=== PATIENT | male | born 1935 | race Caucasian/White ===

== ENCOUNTER 2023-09-17 18:27 | Inpatient (IN) | payer MEDICARE, BC, SELFPAY ==
[2023-09-17] VITALS (12 sets, daily range): BP systolic 123–152; BP diastolic 47–72; BMI 25.7; BMI 24.2
[2023-09-17 13:42] LABS: % Basophils 0.3 % (0-2); % Eosinophils 0.2 % (0-6); % Immature Granulocytes 0.6 % (0-0.5); % Lymphocytes 14.5 % (20.5-51.1); % Monocytes 19.7 % (1.7-9.3); % Neutrophils 64.7 % (42.2-75.2); Absolute Lymphocytes 0.9 10^3/uL (1.2-3.4); Absolute Monocytes 1.3 10^3/uL (0.1-0.6); Absolute Neutrophils 4.1 10^3/uL (1.4-6.5); Hematocrit 22.4 % (39.0-52.0); Hemoglobin 6.7 g/dL (13.0-18.0); Mean Corp Hgb Conc. 29.9 g/dL (33.0-37.0); Mean Corpuscular Hgb 26.4 pg (27.0-31.0); Mean Corpuscular Volume 88.2 fL (80.0-94.0); Mean Platelet Volume 11.1 fL (7.4-10.4); Nucleated Red Blood Cells % 0 % (-); Platelet Count 210 10^3/uL (130-400); Red Blood Cell Count 2.54 10^6/uL (4.70-6.10); Red Cell Dist. Width 17.7 % (11.5-14.5); White Blood Cell Count 6.4 10^3/uL (4.8-10.8)
[2023-09-17 14:00] LABS: NT-proBNP 4280 pg/ml; Troponin I 0.019 ng/ml
[2023-09-17 14:01] LABS: ALT (SGPT) 17 U/L (0-50); AST (SGOT) 30 U/L (17-59); Albumin 3.5 g/dl (3.5-5.0); Alkaline Phosphatase 63 U/L (38-126); Blood Urea Nitrogen 31 mg/dl (9-20); Calcium 8.4 mg/dl (8.4-10.2); Carbon Dioxide 28 mmol/L (22-30); Chloride 100 mmol/L (98-107); Glucose 111 mg/dl (70-99); Potassium 3.7 mmol/L (3.5-5.1); Sodium 133 mmol/L (135-145); Total Bilirubin 1.1 mg/dl (0.2-1.3); eGFR > 60.00
--- NOTE | 2023-09-17 15:04 | ED.GENMED ---
History of Present Illness
<Marely Ramirez PA-C - Last Filed: 09/23/23 18:23>
General
Chief Complaint: Abdominal Pain
Source: patient
Exam Limitations: none
Time Seen by Provider: 09/17/23 14:21
Nursing documentation reviewed up to this point in time: agreed with
Travel History
Have you had any contact with someone who has COVID-19?: No
Do you have any symptoms of coronavirus? Fever > 100 degrees, chills, cough, shortness of breath, sore throat, loss of taste or smell, muscle aches, or headache?: No
History of Present Illness
History of Present Illness:
88-year-old male with a history of interstitial lung disease and chronic respiratory failure on 6 L nasal cannula chronically, chronic cholecystitis status post a cholecystostomy tube in June [address] Brar presents with continued worsening
abdominal distention over the last several weeks. Apparently since the cholecystostomy tube was placed he has had episodes of fluid in his abdomen which has felt to be due to heart failure. His primary care doctor bumped up his Lasix from 40 mg
twice daily to 80 mg twice daily for a week previously in July and that seemed to take care of this excess fluid in his belly. At the beginning of this month August patient started having accumulation of fluid in his belly and did see his
doctor, was recommended to bump up his Lasix to 80 mg twice daily which he did but that did not seem to help at all. Patient has had continued but not worsening distention/ascites but now over the last 2 days he has pain in the right abdomen. His
cholecystostomy tube is draining anywhere from 100 to 400 cc of yellowish to brownish fluid daily. He has a home care nurse who comes to help care for his tube. It chronically leaks so he carries it in a Ziploc bag. He is not having any fever or
chills, increased need for oxygen, chest pain, more exertional dyspnea than normal, severely worsening leg edema though his ankles are little bit more swollen than his baseline.
Patient has had a transfusion previously for symptomatic anemia, he had an endoscopy and colonoscopy not visualizing any source of bleeding. It seems as if the patient's hemoglobin prior to his cholecystitis was always low however he never needed a
transfusion until more recently
Patient has never had a paracentesis, he has no known liver disease, is not an alcoholic
Past History
<Marely Ramirez PA-C - Last Filed: 09/23/23 18:23>
Past History
ED Past Medical History: CAD, Cancer (Prostate), CHF, GERD, HTN, Hypercholesterolemia, Valvular disease (Aortic stenosis) and Other (Interstitial lung disease)
ED Past Surgical History: Appendectomy, Cardiac (PTCA with stent), Orthopedic, Urological (Prostatectomy) and Other (Prostatectomy)
Social History
Tobacco: 2nd hand smoke exposure
Personal:
Living: with family
Employment: Retired
Review of Systems
<Marely Ramirez PA-C - Last Filed: 09/23/23 18:23>
Review of Systems
Allergies reviewed?: Yes
All Other Systems: Not applicable
Phy Exam
<Marely Ramirez PA-C - Last Filed: 09/23/23 18:23>
Physical Exam
Physical Exam:
GENERAL: Alert , in no apparent distress
EYE: pupils equal and reactive
NECK: Supple
ENT: o/p clr, mmm.
CARDIAC: Regular rate and rhythm . Mild edema
LUNGS: Faint crackles in the bases, no cough, no respiratory distress
ABDOMEN: soft, +distended, fluid/not air, mild tender RUQ, perc eligio tube in place draining moderate volume tea colored fluid
Heme-negative brown stool
NEUROLOGICAL: Alert and oriented, no focal neuro deficits
SKIN: Warm and dry, skin intact.
MUSCULOSKELETAL: Mild pedal and ankle edema, well perfused. neg addis's sign
PSYCH: Normal and appropriate interaction.
Course
<Marely Ramirez PA-C - Last Filed: 09/23/23 18:23>
Orders/Labs/Results
Orders:
Orders
09/17/23 13:18
Electrocardiogram (*1) Urgent
Reason for Study: Abdominal Pain
09/17/23 13:19
EKG- Treatment ONCE
09/17/23 13:30
Complete Blood Count/With Diff Urgent
Comprehensive Metabolic Panel Urgent
Ferritin Urgent
Comment: ADD ON
Folate Urgent
Comment: ADD ON
Iron Urgent
Comment: ADD ON
NT-proBNP Urgent
Total Iron Binding Urgent
Comment: ADD ON
Troponin I Urgent
Vitamin B12 Urgent
Comment: ADD ON
09/17/23 Dinner
NPO
Allow oral meds: Yes
Allow clear liquids: Sips of Clears
NPO with Ice Chips: Yes
09/17/23 15:15
CR Chest - 2 Views Urgent
Comment:
Reason For Exam: chf
09/17/23 15:45
Type+Screen Urgent
09/17/23 15:47
CT Abd/Pel (IV only)-DH only Urgent
Comment:
Reason For Exam: abd distension, perc eligio tube, pain right side
09/17/23 17:25
Blood Bank Products [* Blood Bank Products] Routine
Blood Bank Products: *Packed RBC Leuko(PRBC's)
Quantity: 1
Transfuse Today: Yes
Reason: Anemia
Furosemide [Lasix] 60 mg IV NOW STA
09/17/23 17:36
Admit/Transfer Patient As Directed
Co-Sign Provider:
Level of Care: Inpatient admission
Assign to:: Telemetry
Physician / Group: Maeve
Diagnosis: CHF, Abdominal Pain
Reason for Telemetry: Acute Heart Failure
Date to Stop Telemetry: 09/20/23
Time to Stop Telemetry: 11:00
Reason for Hospitalization: IV diuretics
Expected length of stay greater than two midnights?: Yes
ELOS- Estimated Length of Stay in days: 3
I certify the patient meets the requirements for IP care: Yes
09/17/23 18:05
Code Status As Directed
Resuscitation Status: Do not resuscitate
Reached after discussion with pt or family/Healthcare POA: Yes
DNR Bracelet Application ONCE
09/17/23 18:10
Add On- LAB Routine
Tests Added?: iron, ferritin, tibc, folate vit b12
09/17/23 18:19
Morphine Sulfate 2 mg IV Q4HPRN PRN
09/17/23 19:37
Atorvastatin [Lipitor] 20 mg PO QPM
09/17/23 19:37
CARDIOLOGY CONSULT Routine
Consulting Provider: Calvin Avilez
Was physician already notified: Yes
HF DIETARY CONSULT Routine
HF EDUCATOR CONSULT Routine
Comment:
IRAD CONSULT Routine
Consulting Provider: Matt Gale
Was physician already notified: Yes
Reason for consult: Cholecystostomy Tube Check
SURGICAL CONSULT Routine
Consulting Provider: Surjit Brar
Was physician already notified: Yes
Activity As Directed
Activity Level: Out of Bed-Early Mobility
Hemetest Stools As Directed
Intake/ Output As Directed
Frequency: Per unit guidelines
Patient Education As Directed
Type: CHF folder
Comment: give on admission. Document in Interdisciplinary Education record
Sleep Apnea Assessment by RN As Directed
Comment:
Physician Instructions:
Vital Signs As Directed
Frequency: Other
Additional Instructions:: Q12 or per unit guidelines if more frequent.
Weight As Directed
Frequency: Daily
Type of Scale: Standing Scale
Comment: Daily morning weight. If unable to stand, use balanced bed scale.
Weight As Directed
Frequency: Once
Type of Scale: Standing Scale
Comment: Upon Admission. If unable to stand, use balanced bed scale.
Xopenex Reason for Use As Directed
Reason for ordering Xopenex instead of Albuterol: patient takes at home
Pulse Ox/cont/shift [RESP] Routine
Quantity: 1
Special Instructions: Daily pulse oximetry at rest. If greater than 92% at rest also obtain pulse oximetry
while ambulating as tolerated.
DX Deep Vein Thrombosis Video Routine
09/17/23 20:00
Levalbuterol [Xopenex 0.63 mg Inhalant Solution] 0.63 mg INH R TID
Metoprolol Xl [Toprol Xl] 75 mg PO BID
Pantoprazole [Protonix] 40 mg PO BID
09/18/23 00:00
Heparin 5,000 units SC Q8
09/18/23 05:41
Basic Metabolic Panel IN AM
Complete Blood Count/No Diff IN AM
Magnesium IN AM
TSH Reflex To Free T4 IN AM
09/18/23 05:42
Prothrombin Time IN AM
09/18/23 08:00
Amlodipine [Norvasc] 2.5 mg PO DAILY
Aspirin Low Dose EC [Aspir Low (Enteric Coated)] 81 mg PO DAILY
Furosemide [Lasix] 60 mg IV BID AT 0800,1600
ISOSORBIDE MONOnitrate ER [Imdur (Extended Release)] 120 mg PO DAILY
Prednisone [Deltasone] 10 mg PO DAILY
09/19/23 05:32
Basic Metabolic Panel IN AM
09/20/23 11:00
DC Protocol for Telemetry ONCE
Abnormal Lab Results
09/17/23 09/17/23
13:30 15:45
RBC 2.54 L 10^6/uL
(4.70-6.10)
Hgb 6.7 L* g/dL
(13.0-18.0)
Hct 22.4 L %
(39.0-52.0)
MCH 26.4 L pg
(27.0-31.0)
MCHC 29.9 L g/dL
(33.0-37.0)
RDW 17.7 H %
(11.5-14.5)
MPV 11.1 H fL
(7.4-10.4)
Absolute Lymphs (auto) 0.9 L 10^3/uL
(1.2-3.4)
Absolute Monos (auto) 1.3 H 10^3/uL
(0.1-0.6)
Immature Gran % 0.6 H %
(0-0.5)
Lymphocytes % 14.5 L %
(20.5-51.1)
Monocytes % 19.7 H %
(1.7-9.3)
Sodium 133 L mmol/L
(135-145)
BUN 31 H mg/dl
(9-20)
Glucose 111 H mg/dl
(70-99)
Iron 29 L ug/dl
(49-181)
% Saturation 10 L %
(20-50)
Total Protein 6.0 L g/dl
(6.3-8.2)
Vitamin B12 932 H pg/ml
(239-931)
Folate > 20.0 H ng/ml
(2.76-20)
Crossmatch IS Only See Detail
09/17/23 13:30
09/17/23 13:30
Vital Signs
Initial and Last Documented VS:
Initial Vital Signs
Temp Pulse Resp BP Pulse Ox
98.0 F 76 20 123/47 97
09/17/23 13:12 09/17/23 13:12 09/17/23 13:12 09/17/23 13:12 09/17/23 13:12
Last Documented Vital Signs
Temp Pulse Resp BP Pulse Ox
98.1 F 72 18 120/57 100
09/19/23 15:00 09/19/23 15:00 09/19/23 15:00 09/19/23 15:00 09/19/23 15:00
<Harry Ritchie MD - Last Filed: 09/17/23 19:33>
Orders/Labs/Results
Orders:
Orders
09/17/23 13:18
Electrocardiogram (*1) Urgent
Reason for Study: Abdominal Pain
09/17/23 13:19
EKG- Treatment ONCE
09/17/23 13:30
Complete Blood Count/With Diff Urgent
Comprehensive Metabolic Panel Urgent
Ferritin Urgent
Comment: ADD ON
Folate Urgent
Comment: ADD ON
Iron Urgent
Comment: ADD ON
NT-proBNP Urgent
Total Iron Binding Urgent
Comment: ADD ON
Troponin I Urgent
Vitamin B12 Urgent
Comment: ADD ON
09/17/23 Dinner
NPO
Allow oral meds: Yes
Allow clear liquids: Sips of Clears
NPO with Ice Chips: Yes
09/17/23 15:15
CR Chest - 2 Views Urgent
Comment:
Reason For Exam: chf
09/17/23 15:45
Type+Screen Urgent
09/17/23 15:47
CT Abd/Pel (IV only)-DH only Urgent
Comment:
Reason For Exam: abd distension, perc eligio tube, pain right side
09/17/23 17:25
Blood Bank Products [* Blood Bank Products] Routine
Blood Bank Products: *Packed RBC Leuko(PRBC's)
Quantity: 1
Transfuse Today: Yes
Reason: Anemia
Furosemide [Lasix] 60 mg IV NOW STA
09/17/23 17:36
Admit/Transfer Patient As Directed
Co-Sign Provider:
Level of Care: Inpatient admission
Assign to:: Telemetry
Physician / Group: Maeve
Diagnosis: CHF, Abdominal Pain
Reason for Telemetry: Acute Heart Failure
Date to Stop Telemetry: 09/20/23
Time to Stop Telemetry: 11:00
Reason for Hospitalization: IV diuretics
Expected length of stay greater than two midnights?: Yes
ELOS- Estimated Length of Stay in days: 3
I certify the patient meets the requirements for IP care: Yes
09/17/23 18:05
Code Status As Directed
Resuscitation Status: Do not resuscitate
Reached after discussion with pt or family/Healthcare POA: Yes
DNR Bracelet Application ONCE
09/17/23 18:10
Add On- LAB Routine
Tests Added?: iron, ferritin, tibc, folate vit b12
09/17/23 18:19
Morphine Sulfate 2 mg IV Q4HPRN PRN
09/17/23 19:37
Atorvastatin [Lipitor] 20 mg PO QPM
09/17/23 19:37
CARDIOLOGY CONSULT Routine
Consulting Provider: Calvin Avilez
Was physician already notified: Yes
HF DIETARY CONSULT Routine
HF EDUCATOR CONSULT Routine
Comment:
IRAD CONSULT Routine
Consulting Provider: Matt Gale
Was physician already notified: Yes
Reason for consult: Cholecystostomy Tube Check
SURGICAL CONSULT Routine
Consulting Provider: Surjit Brar
Was physician already notified: Yes
Activity As Directed
Activity Level: Out of Bed-Early Mobility
Hemetest Stools As Directed
Intake/ Output As Directed
Frequency: Per unit guidelines
Patient Education As Directed
Type: CHF folder
Comment: give on admission. Document in Interdisciplinary Education record
Sleep Apnea Assessment by RN As Directed
Comment:
Physician Instructions:
Vital Signs As Directed
Frequency: Other
Additional Instructions:: Q12 or per unit guidelines if more frequent.
Weight As Directed
Frequency: Daily
Type of Scale: Standing Scale
Comment: Daily morning weight. If unable to stand, use balanced bed scale.
Weight As Directed
Frequency: Once
Type of Scale: Standing Scale
Comment: Upon Admission. If unable to stand, use balanced bed scale.
Xopenex Reason for Use As Directed
Reason for ordering Xopenex instead of Albuterol: patient takes at home
Pulse Ox/cont/shift [RESP] Routine
Quantity: 1
Special Instructions: Daily pulse oximetry at rest. If greater than 92% at rest also obtain pulse oximetry
while ambulating as tolerated.
DX Deep Vein Thrombosis Video Routine
09/17/23 20:00
Levalbuterol [Xopenex 0.63 mg Inhalant Solution] 0.63 mg INH R TID
Metoprolol Xl [Toprol Xl] 75 mg PO BID
Pantoprazole [Protonix] 40 mg PO BID
09/18/23 00:00
Heparin 5,000 units SC Q8
09/18/23 05:41
Basic Metabolic Panel IN AM
Complete Blood Count/No Diff IN AM
Magnesium IN AM
TSH Reflex To Free T4 IN AM
09/18/23 05:42
Prothrombin Time IN AM
09/18/23 08:00
Amlodipine [Norvasc] 2.5 mg PO DAILY
Aspirin Low Dose EC [Aspir Low (Enteric Coated)] 81 mg PO DAILY
Furosemide [Lasix] 60 mg IV BID AT 0800,1600
ISOSORBIDE MONOnitrate ER [Imdur (Extended Release)] 120 mg PO DAILY
Prednisone [Deltasone] 10 mg PO DAILY
09/19/23 05:32
Basic Metabolic Panel IN AM
09/20/23 11:00
DC Protocol for Telemetry ONCE
Abnormal Lab Results
09/17/23 09/17/23
13:30 15:45
RBC 2.54 L 10^6/uL
(4.70-6.10)
Hgb 6.7 L* g/dL
(13.0-18.0)
Hct 22.4 L %
(39.0-52.0)
MCH 26.4 L pg
(27.0-31.0)
MCHC 29.9 L g/dL
(33.0-37.0)
RDW 17.7 H %
(11.5-14.5)
MPV 11.1 H fL
(7.4-10.4)
Absolute Lymphs (auto) 0.9 L 10^3/uL
(1.2-3.4)
Absolute Monos (auto) 1.3 H 10^3/uL
(0.1-0.6)
Immature Gran % 0.6 H %
(0-0.5)
Lymphocytes % 14.5 L %
(20.5-51.1)
Monocytes % 19.7 H %
(1.7-9.3)
Sodium 133 L mmol/L
(135-145)
BUN 31 H mg/dl
(9-20)
Glucose 111 H mg/dl
(70-99)
Iron 29 L ug/dl
(49-181)
% Saturation 10 L %
(20-50)
Total Protein 6.0 L g/dl
(6.3-8.2)
Vitamin B12 932 H pg/ml
(239-931)
Folate > 20.0 H ng/ml
(2.76-20)
Crossmatch IS Only See Detail
09/17/23 13:30
0326/24 13:30
Vital Signs
Initial and Last Documented VS:
Initial Vital Signs
Temp Pulse Resp BP Pulse Ox
98.0 F 76 20 123/47 97
09/17/23 13:12 09/17/23 13:12 09/17/23 13:12 09/17/23 13:12 09/17/23 13:12
Last Documented Vital Signs
Temp Pulse Resp BP Pulse Ox
98.1 F 72 18 120/57 100
09/19/23 15:00 09/19/23 15:00 09/19/23 15:00 09/19/23 15:00 09/19/23 15:00
Rezalt;Marely Ramirez PA-C - Last Filed: 09/23/23 18:23>
MDM/Problems Addressed
Differential Diagnosis Includes:
ascites, sbp, chf, volume overload
MDM/Problems Addressed:
88-year-old male with ongoing persistent abdominal swelling which has been attributed to fluid volume overload ever since he had a PERC cholecystostomy tube in June. Patient has been treated a couple of times with increasing his Lasix which
worked in July but this month has not worked and the patient is having trouble taking breaths because he feels like his belly is too big. He does chronically wear oxygen for interstitial lung disease 6 L and has not required any increase in his
oxygen concentration. Patient has not had exertional chest pain or shortness of breath. He has started with right-sided abdominal pain for the past 2 days which is why he is here. He has been wanting someone to drain the fluid from his belly but
has not had that happen. His PERC Yanet tube still is draining 100 to 400 cc of fluid daily. There is been no change in that. He is not having any systemic symptoms. On exam the patient does look to have abdominal ascites, has some faint
crackles in both lungs but not significant sounds of heart failure, his ankles are slightly swollen, he did have some tenderness to the right upper quadrant, had the PERC Yanet tube is draining brownish fluid that does not look cloudy or thick.
Patient's hemoglobin is 6.7 but he does not seem overly symptomatic. I fear transfusing him at this time not knowing his volume status, his BNP is elevated, pending chest x-ray. He is Hemoccult negative brown stool.
At this point he is pending chest x-ray and abdominal CT but will likely need to be admitted for IR to tap this fluid, probably as a diagnostic and therapeutic tap. He has no known liver disease and his liver functions are normal. Plus or minus a
transfusion during this admission
<Marely Ramirez PA-C - Last Filed: 09/23/23 18:23>
*Critical Care Note
Total Time (30-74mins, 75-104mins- exclusive of procedures): Not Applicable
ED Attending Note
<Marely Ramirez PA-C - Last Filed: 09/23/23 18:23>
-
Portions of this chart may have been created with voice recognition software.� Occasional wrong word or��sound alike� substitutions may have occurred due to the inherent limitations of voice recognition software.
<Harry Ritchie MD - Last Filed: 09/17/23 19:33>
ED Attending Note
Patient seen and examined by attending physician: Yes
ED Attending Note:
I have seen and evaluated the patient with a [id number] encounter. I have spoken to the advance practicer provider and involved in the medical history, the physical exam, medical decision making.
Evaluation and management service: agree unless noted differently below.
Results interpretation: agree unless noted differently below.
Focused HPI: 88-year-old male with extensive medical history as documented including chronic anemia, CHF, prostate cancer, CAD, aortic stenosis, interstitial lung disease with chronic respiratory failure on 6 L of nasal cannula who is currently on
hospice (CHF is end-stage diagnosis) presents for evaluation of abdominal pain. He had a recent hospitalization in June for acute cholecystitis and underwent percutaneous cholecystostomy tube with [facility]. He has had cholecystostomy tube in place
since which has had rather significant output apparently 200 to 300 cc daily. Apparently over the past few weeks he has had increasing abdominal pain and distention. Over the past few days he feels it is much worse particularly in the right upper
abdomen. He still has had normal output from his tube. He has not had a fever. He has not had any vomiting. He is still passing his bowels. He was brought to the emergency room to be assessed.
Physical exam: Awake and alert, chronically ill-appearing. He has no cardiac rubs gallops or murmurs. His lungs are clear to auscultation bilaterally. He has a percutaneous cholecystostomy tube in place, site appears clean, tea colored output
approximately 200 cc in the bag. His abdomen is mildly distended with likely ascites, tender to palpation right upper quadrant. He has trace edema in his lower extremities bilaterally.
Medical Decision Makin-year-old male with extensive medical history and recent percutaneous cholecystostomy tube placed for acute cholecystitis in June who presents for worsening abdominal stanchion over the past few weeks and now worsening
right upper quadrant pain as well. Exam as above. Labs sent off and his CBC shows acute on chronic anemia with a hemoglobin of 6.7 (Hemoccult negative on rectal by physicians bindery library technical assistant). CMP shows acceptable LFTs. His proBNP is elevated. Chest
x-ray shows some mild pulmonary edema. CT of the abdomen pelvis shows acute cholecystitis with questionable leak from cholecystostomy tube. Will defer decision for transfusion to hospitalist given questionable CHF exacerbation. Will treat with
antibiotics. Will likely need to check with [facility]. Discussed with hospitalist to admit.
Discharge Plan
Departure
Patient Disposition: Admit
Admit to: Med/Surg
Presentation/result/management discussed w/ accepting MD/DO: Hospitalist
Condition: Fair
Covid-19: Not Applicable
Discharge Problem:
Acute cholecystitis
Interventions
Interventions:
*Risk Screen - Suicide Last Done: 09/17/23 15:31
*General Assessment Last Done: 09/17/23 15:31
*Neglect/Abuse Screening Last Done: 09/17/23 15:31
ED- Fall Risk Assessment Last Done: 09/17/23 19:09
*ED COVID-19 Vaccine History Last Done: 09/17/23 15:31
*Nursing Disposition Last Done: 09/17/23 19:54
XG-Fldfdm-Jcaikhltid Assessment Last Done: 09/17/23 19:09
Discharge Date and Time
Discharge Date/Time: 09/17/23 20:15
--- NOTE | 2023-09-17 17:48 | HPS.HSE ---
Addendum entered and electronically signed by Navi Mcfarlane MD 09/17/23 18:18:
I saw and examined the patient.
The ENTERPRISE MANAGER or PA's note was reviewed and I agree with the note.
Comment: 88 y/o M, hx of ILD on chronic O2, chronic HFpEF, chronic cholecystitis with cholecystostomy tube, hx of prostate cancer, CAD, GERD, HTN, HLD, presents to ER for worsening abd distention x last few weeks. Patient reports worsening fluid
in abdomen since eligio tube in June. He d/w PCP And his Lasix was increased to 80mg BID. Patient initially noted improvement but later in August he began having fluid build-up with no improvement in BID dosing. now pt presents with abd distention.
No fever/chills. no chest pain. no change in O2 requirements (chronically 6L). Patient reports yellow/brown fluid from cholecystostomy tube
In ER, CXR showing volume overload and patient with anemia. No treatment orders placed by ER staff . Patient admitted for management.
Physical Exam
General:�Comfortable and Conversant
HEENT:�Anicteric, Moist mucous membranes and Oxygen (Nasal Cannula)
Respiratory:�Decreased Breath Sounds (Bilateral Bases)
Cardiac:�S1/S2, Regular Rhythm and Murmur (2/6 Systolic Murmur heard best at right upper sternal border); No Tachycardia
GI:�Soft, Tender (Right upper quadrant without rebound or guarding) and Other (Upper Abd is protuberant; Cholecystostomy tube site with mild erythema and slight purulent drainage noted)
Rectal:�Deferred by Provider
Musculoskeletal:�No Clubbing, No Cyanosis and No Edema
Skin:�Warm and Dry
Neuro:�Awake, Alert, Oriented and Nonfocal/grossly intact
Psych:�Calm
Assessment:
Acute on chronic HFpEF
- BNP 4280
- cxr: blunting of both posterior sulci consistent with small bilateral pleural effusions and there is cephalization of vasculature suggesting elevated pulmonary venous pressures/borderline pulmonary edema
- latest Echo 02/12: EF 75%, moderate MR, moderate , trace TR
- Echo: updated study pending
- IV Lasix 60mg BID - requires intensive monitoring of I/Os, weights, labs.
- Cards consult
acute cholecystitis s/p perc eligio tube 07/17
hx of Choledocholithiasis
- site with some pus drainage, redness
- continue perc eligio tube
- IRAD for tube check
- GS evaluation
- await CT result
Abdominal distention, possible ascites
- await CT result - may need paracentesis
Acute on chronic anemia
- prior GI workup unrevealing for bleeding syndromes
- transfuse 1 unit and repeat Hb tomorrow; aim Hb 7.0 or higher
ILD
Chronic hypoxic Resp failure, 6L
- continue steroids, scheduled nebs
CAD
Prostate Cancer hx
Essential HTN
- continue CCB/BB
HLD - Statin
GERD - PPI
DVT ppx: SCDs
Code: Full
Original Note:
Family Physician
-
Family Physician: SAM Okeefe
Chief Complaint
-
Abdominal distention, right upper quadrant pain, and shortness of breath
History of Present Illness
Patient is a 62 with a past medical history of CAD, CHF, ILD and recent cholecystostomy tube placement in June 2023 who presents with increased abdominal distention, right upper quadrant pain and shortness of breath. Patient is increasing
abdominal distention, mostly in the upper abdomen region. He states he has been on 2 courses of increased Lasix with some improvement in his symptoms, but states he quickly recurs. He notes increased shortness of breath, as well as increased right
upper quadrant pain particularly with inspiration and cough. He admits to increased lower extremity edema. He denies fever, sweats or chills.
Medical History
Past Medical History
Past Medical History: Reports Other
Additional Past Medical History:
Coronary Artery Disease s/p Stent
Chronic HFpEF
Moderate Aortic Stenosis
Essential Hypertension
Hyperlipidemia
Chronic Hypoxic Respiratory Failure secondary to Interstitial Lung Disease
Hx Prostate CA s/p Prostatectomy
Past Surgical History: Reports Other
Additional Past Surgical History:
Cardiac Stent
Appendectomy
Hernia Repair
Hemorrhoidectomy
Prostatectomy
Right Total Hip Replacement
Left Knee Replacement
Cataracts
Social History
Tobacco: Non-smoker
Alcohol: None
Personal:
Family History
Family History: Not pertinent
Allergies / Home Medications
Allergies reflects when Allergies were last updated in [employer].
Home Medications with original date entered in [facility]
Allergy/Medication List:
Allergies
Allergy/AdvReac Type Severity Reaction Status Date / Time
bee pollen Allergy Swelling Verified 09/17/23 13:12
Influenza Virus Vaccines Allergy 'gave me Verified 09/17/23 13:12
the flu
and made
me sick
don't take
anymore'
ranolazine [From Ranexa] Allergy hallucinati Verified 09/17/23 13:12
ons
Zglgoti-FVI-OmK Reductase Allergy joint pain Verified 09/17/23 13:12
Inhibitor
[Jixejnp-Tes-Wji Reductase
Inhibitor]
Home Medications
bqtvprmw-von-zucfz acid 0.4 mg-lycopene 300 mcg-lutein 250 mcg tablet (Centrum Silver) 1 ea PO DAILY Supplement 11/09/16
nitroglycerin 0.4 mg sublingual tablet 0.4 mg sublingual [id number] PRN chest pain 11/09/16
atorvastatin 20 mg tablet (Lipitor) 20 mg PO QPM High cholesterol 01/15/22
aspirin 81 mg tablet,delayed release 81 mg PO DAILY Blood clot prevention/tx 02/14/22
pantoprazole 40 mg tablet,delayed release 40 mg PO BID Gastrointestinal issue #45 tabs 02/21/22
metoprolol succinate 25 mg tablet,extended release 24 hr 75 mg PO BID 30 days #180 tabs 03/02/22
furosemide 40 mg tablet 40 mg PO BID@0800,1200 Fluid retention/Swelling 04/15/22
guaifenesin 600 mg tablet, extended release 12 hr (Mucinex) 600 mg PO [id number] PRN congestion 04/15/22
prednisone 10 mg tablet 10 mg PO DAILY Anti-inflammatory 04/15/22
acetaminophen 325 mg tablet 650 mg PO Q4HPRN PRN mild pain/AG/temp> 100.4F #0 tabs 04/19/22
amlodipine 2.5 mg tablet 2.5 mg PO DAILY blood pressure 07/02/23
morphine concentrate 100 mg/5 mL (20 mg/mL) oral solution 10 mg PO Q6H pain 07/02/23
isosorbide mononitrate 120 mg tablet,extended release 24 hr 120 mg PO DAILYPRN PRN bp geater then 120 09/17/23
levalbuterol HCl 0.63 mg/3 mL solution for nebulization 0.63 mg inhalation R TID 09/17/23
Review of Systems
-
A 12 point ROS was completed and negative except as noted: Yes
Constitutional: Denies Fever or Chills
Respiratory: Reports Trouble Breathing; Denies Cough
Cardiac: Denies Chest Pain or Palpitations
Abdomen/GI: Reports Abdominal Pain; Denies Nausea or Vomiting
Physical Exam
Vital Signs
Vital Signs
Temp Pulse Resp BP Pulse Ox
98.0 F 70 16 152/53 100
09/17/23 13:12 09/17/23 17:00 09/17/23 17:00 09/17/23 17:00 09/17/23 15:31
Physical Exam
General: Comfortable and Conversant
HEENT: Anicteric, Moist mucous membranes and Oxygen (Nasal Cannula)
Respiratory: Decreased Breath Sounds (Bilateral Bases)
Cardiac: S1/S2, Regular Rhythm and Murmur (2/6 Systolic Murmur heard best at right upper sternal border); No Tachycardia
GI: Soft, Tender (Right upper quadrant without rebound or guarding) and Other (Upper Abd is protuberant; Cholecystostomy tube site with mild erythema and slight purulent drainage noted)
Rectal: Deferred by Provider
Musculoskeletal: No Clubbing, No Cyanosis and No Edema
Skin: Warm and Dry
Neuro: Awake, Alert, Oriented and Nonfocal/grossly intact
Psych: Calm
Laboratory Results
-
09/17/23 13:30
09/17/23 13:30
Laboratory Results
Total Bilirubin 1.1 mg/dl (0.2-1.3) 09/17/23 13:30
AST 30 U/L (17-59) 09/17/23 13:30
ALT 17 U/L (0-50) 09/17/23 13:30
Alkaline Phosphatase 63 U/L (38-126) 09/17/23 13:30
Troponin I 0.019 ng/ml 09/17/23 13:30
Impression/Plan
-
Acute on Chronic HFpEF
-Consult Cardiology
-Check Echo as previous was from 2021
-Continue Lasix 60mg IV BID
-Monitor Is&OS and Daily Weights
Chronic Anemia
-Hgb slightly lower than previous
-Transfuse 1unit PRBCs
-Check iron studies
Abdominal Pain/Distention
-Await CT scan result
Cholecystectomy Tube
-Consult General Surgery
-Consult IR for Tube Check
Coronary Artery Disease s/p Stent
-Continue aspirin
Essential Hypertension
-Continue amlodipine and metoprolol succinate with hold parameters
Chronic Hypoxic Respiratory Failure secondary to Interstitial Lung Disease
-Continue Xopenex TID
-Continue prednisone as prior to admission
DVT proph: SC Heparin
Code Status: DNR
--- NOTE | 2023-09-17 18:05 | EDRN ---
Patient receiving PRBC's. Explained to patient signs and symptoms of a transfusion reaction. Verbalized understanding.
--- NOTE | 2023-09-17 18:26 | EDRN ---
Patient tolerating PRBC well. Asymptomatic of a transfusion reaction.
[2023-09-17] MEDS: MORPHINE SULFATE 2 MG IV ×2 (18:41→21:05)
[2023-09-17 18:44] LABS: Iron 29 ug/dl (49-181)
[2023-09-17 18:53] LABS: Percent Saturation 10 % (20-50); Total Iron Binding Capacity 273 ug/dl (261-462)
[2023-09-17 19:32] LABS: Ferritin 51.8 ng/ml (17.9-464.0)
--- NOTE | 2023-09-17 19:45 | PTCARENOTE ---
Received pt from ED via stretcher. Pt ambulated to bed x1 with RW. AAOx3. Pt complained of 8/10 pain in RUQ, see MAR. potline monitor placed and reading NSR. Assessed and oriented to room. Pt verbalized understanding of call mcdonnell. Call mcdonnell within
close reach.
Will continue to monitor.
[2023-09-17 20:03] LABS: Folate > 20.0 ng/ml (2.76-20); Vitamin B12 932 pg/ml (239-931)
[2023-09-17] MEDS: XOPENEX 0.63 MG INHALANT SOLUTION 0.630000000000000004 MG INH (20:13)
[2023-09-17] MEDS: ZOSYN 50 IV (21:01)
[2023-09-17] MEDS: LIPITOR 20 MG PO (21:04)
[2023-09-17] MEDS: LASIX 60 MG IV (21:04)
[2023-09-17] MEDS: PROTONIX 40 MG PO (21:04)
[2023-09-17] MEDS: TOPROL XL 75 MG PO (21:04)
[2023-09-17] MEDS: FLUSH (NSS) 2 FLUSH IV (21:11)
[2023-09-17] MEDS: HEPARIN 5000 UNITS SC (23:31)
[2023-09-18] VITALS (7 sets, daily range): BP systolic 106–140; BP diastolic 50–61; BMI 23.5
[2023-09-18] MEDS: ZOSYN 50 IV ×4 (00:59→21:32)
--- NOTE | 2023-09-18 04:02 | DOWNTIME ---
There was a [employer] Client Adoption Specialist Downtime on 09/18/2023 from 0100 to 09/18/2023 at 0322. Downtime documentation of patient's care, including medication administrations, has been reconciled in the electronic record per guidelines. Refer to the
patient's paper chart under the miscellaneous tab to see printed paper medication records and downtime forms.
[2023-09-18 05:56] LABS: Hematocrit 25.8 % (39.0-52.0); Mean Corp Hgb Conc. 31.4 g/dL (33.0-37.0); Mean Corpuscular Hgb 27.4 pg (27.0-31.0); Mean Corpuscular Volume 87.2 fL (80.0-94.0); Mean Platelet Volume 10.9 fL (7.4-10.4); Platelet Count 183 10^3/uL (130-400); Red Blood Cell Count 2.96 10^6/uL (4.70-6.10); Red Cell Dist. Width 16.4 % (11.5-14.5); White Blood Cell Count 3.8 10^3/uL (4.8-10.8)
[2023-09-18 06:10] LABS: INR 1.19; PT 14.9 Sec (11.4-14.6)
[2023-09-18 06:23] LABS: Hemoglobin 8.1 g/dL (13.0-18.0)
[2023-09-18 06:26] LABS: Blood Urea Nitrogen 26 mg/dl (9-20); Calcium 8.6 mg/dl (8.4-10.2); Carbon Dioxide 34 mmol/L (22-30); Chloride 96 mmol/L (98-107); Estimated Creatinine Clearance 46 ml/min; Glucose 87 mg/dl (70-99); Magnesium 2.1 mg/dl (1.6-2.3); Potassium 3.4 mmol/L (3.5-5.1); Sodium 139 mmol/L (135-145); eGFR > 60.00
[2023-09-18 06:55] LABS: TSH Reflex To Free T4 0.48 uIU/ml (0.47-4.68)
[2023-09-18] MEDS: DELTASONE 10 MG PO (08:43)
[2023-09-18] MEDS: IMDUR (EXTENDED RELEASE) 120 MG PO (08:43)
[2023-09-18] MEDS: TOPROL XL 75 MG PO ×2 (08:43→21:32)
[2023-09-18] MEDS: KCL 40 MEQ PO (08:43)
[2023-09-18] MEDS: NORVASC 2.5 MG PO (08:43)
[2023-09-18] MEDS: PROTONIX 40 MG PO ×2 (08:43→21:32)
[2023-09-18] MEDS: ASPIR LOW (ENTERIC COATED) 81 MG PO (08:43)
[2023-09-18] MEDS: HEPARIN 5000 UNITS SC ×3 (08:46→23:48)
[2023-09-18] MEDS: LASIX 60 MG IV ×2 (08:46→17:01)
[2023-09-18] MEDS: XOPENEX 0.63 MG INHALANT SOLUTION 0.630000000000000004 MG INH ×3 (08:52→19:37)
--- NOTE | 2023-09-18 09:32 | CON.CAR ---
Addendum entered and electronically signed by Riky Thomas MD 09/18/23 10:43:
88 yo male with PMH of CAD, prior stents, valvular HD, ILD, chronic HFPEF admitted with abdominal distention and some edema. He is also being treated for cholecystitis. We are consulted for acute on chronic HFPEF. Edema has improved with IV
lasix. Exam with RRR, II/ systolic murmur at RUSB, no edema. Tele: SR, NSVT. Echo 09/17: EF 55-60%, Stage I DD, mild , mild MS, mild/mod MR.
Continue lasix 60mg IV bid, and trend weight, tele, labs.
Original Note:
Consultation
Consultation Request
Date/Time Consultation Requested: 09/17/231936
Date/Time Consultation Performed: 09/18/23919
Requesting Provider: Nohemi Simmons PA-C
Performing Provider: Marilynn VARGAS for Dr. Thomas
Reason for Consultation: CHF
Medical History
-
Chief Complaint: abdominal pain and distension
History of Present Illness:
88 y/o male with CAD with stenting, Mod , mod MR, hypertension, idiopathic pulmonary fibrosis on O2 by NC, anemia, and dyslipidemia who is here for abdominal distension and pain. He did also report some worsened BLE edema of recent (R >L, which is
typical for him he tells me). Per chart, Lasix was increased as OP to help with distension, though details of this unclear. It appears that patient is on home hospice. He had cholecystitis in June and has a cholecystotomy tube. Imaging here
reveals gallbladder wall thickening with mild pericholecystic edema suggesting cholecystitis, there is a percutaneous cholecystotomy tube with its tip coiled in the gallbladder. Finally, along the course of the cholecystotomy tube, there is small
volume fluid and moderate inflammatory change between the liver and the overlying musculature suggesting possible leak. Surgery and IR are consulted. We are consulted since there is also felt to be a component of CHF exacerbation and he is being
diuresed. He is in no distress at the time of my assessment.
Allergies / Home Medications
Allergy/AdvReac Type Severity Reaction Status Date / Time
bee pollen Allergy Swelling Verified 09/17/23 13:12
Influenza Virus Vaccines Allergy 'gave me Verified 09/17/23 13:12
the flu
and made
me sick
don't take
anymore'
ranolazine [From Ranexa] Allergy hallucinati Verified 09/17/23 13:12
ons
Ukyvami-WCQ-ElU Reductase Allergy joint pain Verified 09/17/23 13:12
Inhibitor
[Ebotssp-Rds-Xyy Reductase
Inhibitor]
�Medication �Instructions �Recorded �Confirmed �Type
pktsalfj-qdb-ptuhd acid 0.4 1 ea PO DAILY Supplement 11/09/16 09/17/23 History
mg-lycopene 300 mcg-lutein 250 mcg
tablet (Centrum Silver)
nitroglycerin 0.4 mg sublingual 0.4 mg sublingual [id number] PRN 11/09/16 09/17/23 History
tablet chest pain
atorvastatin 20 mg tablet (Lipitor) 20 mg PO QPM High cholesterol 01/15/22 09/17/23 History
aspirin 81 mg tablet,delayed 81 mg PO DAILY Blood clot 02/14/22 09/17/23 History
release prevention/tx
pantoprazole 40 mg tablet,delayed 40 mg PO BID Gastrointestinal 02/21/22 09/17/23 Rx
release issue #45 tabs
metoprolol succinate 25 mg 75 mg (3 x 25 mg) PO BID 30 days 03/02/22 09/17/23 Rx
tablet,extended release 24 hr #180 tabs
furosemide 40 mg tablet 40 mg PO BID@0800,1200 Fluid 04/15/22 09/17/23 History
retention/Swelling
guaifenesin 600 mg tablet, 600 mg PO [id number] PRN congestion 04/15/22 09/17/23 History
extended release 12 hr (Mucinex)
prednisone 10 mg tablet 10 mg PO DAILY Anti-inflammatory 04/15/22 09/17/23 History
acetaminophen 325 mg tablet 650 mg (2 x 325 mg) PO Q4HPRN PRN 04/19/22 09/17/23 Rx
mild pain/AG/temp> 100.4F #0 tabs
amlodipine 2.5 mg tablet 2.5 mg PO DAILY blood pressure 07/02/23 09/17/23 History
morphine concentrate 100 mg/5 mL 10 mg PO Q6H pain 07/02/23 09/17/23 History
(20 mg/mL) oral solution
isosorbide mononitrate 120 mg 120 mg PO DAILYPRN PRN bp geater 09/17/23 09/17/23 History
tablet,extended release 24 hr then 120
levalbuterol HCl 0.63 mg/3 mL 0.63 mg inhalation R TID 09/17/23 09/17/23 History
solution for nebulization
Physical Exam
Vital Signs
Temp Pulse Resp BP Pulse Ox
98.8 F 64 18 129/55 100
09/18/23 07:00 09/18/23 08:55 09/18/23 08:55 09/18/23 08:46 09/18/23 08:55
Lab Results
09/18/23 05:41
09/18/23 05:41
Troponin I 0.019 ng/ml 09/17/23 13:30
Dzl-H-Urrsbmqjxme Pept 4280 pg/ml 09/17/23 13:30
Physical Exam
General: Well Developed, Well Nourished and No Apparent Distress
HEENT: Normocephalic and Anicteric
Respiratory: Crackles (b/l bases; on O2 by NC)
Cardiac: Regular Rhythm and Murmur (III/ systolic murmur)
Breast: Deferred by me
GI: Distended
Musculoskeletal: Edema (trace L, mild R)
Skin: Warm and Dry
Neuro: AO x 3
Psych: Calm
Impression / Plan
-
Cholecystitis:
-CT abd/pelvis as noted with possible coiling/leak and GS/IR consulted
Kcvmk-nz-doeepwl HFpEF:
-BNP elevated and CXR suggestive excess volume
-regarding weight, patient tells me he lost some weight after cholecystitis diagnosis in June, but then it came back on (was 146 lbs he thinks, now back down to 140). Edema improved per patient.
-Hypokalemia noted and being replaced
-continue IV diuresis, which requires intensive monitoring for toxicity
Moderate MR and :
-echo updated this AM- pending
CAD with hx stenting:
-gets angina at times, resolves with nitro
-continue ASA, statin, and BB
Anemia:
-improved s/p PRBC
-follow
ILD:
-on steroids, O2, nebs
Data Reviewed
-
EKG: Tracing Personally Visualized and interpreted (SR with PAC's, LAD, LVH 76 BPM)
Radiology: Report Reviewed by me (CXR: There is blunting of both posterior sulci consistent with small bilateral pleural effusions and there is cephalization of vasculature suggesting elevated pulmonary venous pressures/borderline pulmonary edema)
CT Scan: Report Reviewed by me (abdomen and pelvis CT: gallbladder wall thickening with mild pericholecystic edema suggesting cholecystitis, there is a percutaneous cholecystotomy tube with its tip coiled in the gallbladder. there is also evidence
of possible leak)
Medical Tests (Nuc Med, Echo etc): Report Reviewed by me (Echo 02/15/22: LV ejection fraction is >75%. Severely dilated left atrium. Moderate, eccentric mitral regurgitation. Moderate aortic stenosis; peak/mean gradients ae 72/36 mmHg, calculated ERIK
is 1.5 cm2. )
Labs: Labs Reviewed by me and Other (cath 02/19/22: Right dominant circulation with patent stents in the proximal LAD, diagonal, OM1,circumflex into OM 2 and distal RPL, progressive stenosis of the ostial circumflex and stable stenosis of the OM 2
and proximal RPL. Nonocclusive ostial circumflex 60% lesion, mod )
--- NOTE | 2023-09-18 11:21 | CON.GS ---
Addendum entered and electronically signed by Surjit Brar MD 09/18/23 13:47:
Prior tube was in appropriate position, it was upsized by IR. Cholangiogram showed opacification of the common duct demonstrating cystic duct patency. Would be reasonable to attempt to cap the tube at this point. IR was contacted regarding capping
the tube.
Original Note:
Consultation
-
Requesting Provider: Mahnaz
Performing Provider: Zonia
Reason for Consultation: Ynes tube in situ
Medical History
-
Chief Complaint: Abd distention for weeks
History of Present Illness:
88M with recent hx of ACC managed by IR drain 2/2 poor operative candidate returns for weeks of worsening abd distention. He does have some pain at the right abdomen, he descibes this as localized to his skin where the drain site is. The drain puts
out 100-300cc daily. There is some spotting on the drain dressing when he changes it. He denies f/c/n/v. He has been increasing lasix for his distention over the past weeks but it has not improved.
Past Medical History
Past Medical History: Other (Coronary Artery Disease s/p Stent Chronic HFpEF Moderate Aortic Stenosis Essential Hypertension Hyperlipidemia Chronic Hypoxic Respiratory Failure secondary to Interstitial Lung Disease (6L home O2) Hx Prostate CA s/p
Prostatectomy)
Past Surgical History: Other (Cardiac Stent Appendectomy Hernia Repair Hemorrhoidectomy Prostatectomy Right Total Hip Replacement Left Knee Replacement Cataracts)
Social History
Tobacco: Non-Smoker
Alcohol: None
Personal:
Family History
Family History: Reviewed & Noncontributory
Allergies / Home Medications
Allergy/AdvReac Type Severity Reaction Status Date / Time
bee pollen Allergy Swelling Verified 09/17/23 13:12
Influenza Virus Vaccines Allergy 'gave me Verified 09/17/23 13:12
the flu
and made
me sick
don't take
anymore'
ranolazine [From Ranexa] Allergy hallucinati Verified 09/17/23 13:12
ons
Wiiyrmx-YPS-DoZ Reductase Allergy joint pain Verified 09/17/23 13:12
Inhibitor
[Ddfdvtt-Bbd-Uvi Reductase
Inhibitor]
�Medication �Instructions �Recorded �Confirmed �Type
dlcwinku-aqr-gwbao acid 0.4 1 ea PO DAILY Supplement 11/09/16 09/17/23 History
mg-lycopene 300 mcg-lutein 250 mcg
tablet (Centrum Silver)
nitroglycerin 0.4 mg sublingual 0.4 mg sublingual [id number] PRN 11/09/16 09/17/23 History
tablet chest pain
atorvastatin 20 mg tablet (Lipitor) 20 mg PO QPM High cholesterol 01/15/22 09/17/23 History
aspirin 81 mg tablet,delayed 81 mg PO DAILY Blood clot 02/14/22 09/17/23 History
release prevention/tx
pantoprazole 40 mg tablet,delayed 40 mg PO BID Gastrointestinal 02/21/22 09/17/23 Rx
release issue #45 tabs
metoprolol succinate 25 mg 75 mg (3 x 25 mg) PO BID 30 days 03/02/22 09/17/23 Rx
tablet,extended release 24 hr #180 tabs
furosemide 40 mg tablet 40 mg PO BID@0800,1200 Fluid 04/15/22 09/17/23 History
retention/Swelling
guaifenesin 600 mg tablet, 600 mg PO [id number] PRN congestion 04/15/22 09/17/23 History
extended release 12 hr (Mucinex)
prednisone 10 mg tablet 10 mg PO DAILY Anti-inflammatory 04/15/22 09/17/23 History
acetaminophen 325 mg tablet 650 mg (2 x 325 mg) PO Q4HPRN PRN 04/19/22 09/17/23 Rx
mild pain/AG/temp> 100.4F #0 tabs
amlodipine 2.5 mg tablet 2.5 mg PO DAILY blood pressure 07/02/23 09/17/23 History
morphine concentrate 100 mg/5 mL 10 mg PO Q6H pain 07/02/23 09/17/23 History
(20 mg/mL) oral solution
isosorbide mononitrate 120 mg 120 mg PO DAILYPRN PRN bp geater 09/17/23 09/17/23 History
tablet,extended release 24 hr then 120
levalbuterol HCl 0.63 mg/3 mL 0.63 mg inhalation R TID 09/17/23 09/17/23 History
solution for nebulization
Review of Systems
-
A 10 point review of systems was completed, and was negative except as per HPI.
Physical Exam
Vital Signs
Temp Pulse Resp BP Pulse Ox
98.8 F 64 18 129/55 100
09/18/23 07:00 09/18/23 08:55 09/18/23 08:55 09/18/23 08:46 09/18/23 08:55
09/17/23 09/18/23 09/19/23
06:59 06:59 06:59
Actual Weight 64.183 kg
Body Mass Index (BMI) 23.5
Lab Results
09/18/23 05:41
09/18/23 05:41
WBC 3.8 10^3/uL (4.8-10.8) L 09/18/23 05:41
Hgb 8.1 g/dL (13.0-18.0) L D 09/18/23 05:41
Hct 25.8 % (39.0-52.0) L 09/18/23 05:41
Plt Count 183 10^3/uL (130-400) 09/18/23 05:41
Abs Immat Gran (auto) 0.0 10^3/uL (0-0.05) 09/17/23 13:30
Neutrophils % 64.7 % (42.2-75.2) 09/17/23 13:30
Physical Exam
General: No Apparent Distress
GI: Soft, Non Tender, Non Distended and Other (drain with clear bilious fluid, dressing dry, mild erythema around the drain site without purulence or fluctuance )
Neuro: AO x 3
Psych: Calm
Data Reviewed
-
CT Scan: Image Personally Visualized and interpreted, Report Reviewed by me, Discussed with Physician, Discussed with Nurse and Discussed with Patient
Labs: Labs Reviewed by me, Discussed with Physician, Discussed with Nurse and Discussed with Patient
Assessment / Plan
-
88M with apparent CHF exacerbation
AFVSS, exam benign
No leukocytosis, mild leukopenia new from today is noted
Hb responded appropriately to transfusion
CT A/P with drain in position, no fluid collections, no free fluid
Reassured the pt the redness at the skin around the drain and spotting on the drain dressing is common with retirement drains like this, does not represent an acute problem and will likely continue into the future
Plan:
Drain check with IR
Remains a poor candidate for surgery with high risks, he is not interested in surgery
Nothing more to offer from surgical standpoint
Pls call with ?s
--- NOTE | 2023-09-18 13:32 | W.PN.HOSP.TC ---
Today's Communication/Plan
-
see outlined plan
Assessment / Plan
Assessment / Plan
Assessment:
Acute on chronic HFpEF
- BNP 4280
- cxr: blunting of both posterior sulci consistent with small bilateral pleural effusions and there is cephalization of vasculature suggesting elevated pulmonary venous pressures/borderline pulmonary edema
- latest Echo 02/12: EF 75%, moderate MR, moderate , trace TR
- Echo this admit: EF 60%, stage 1DD, LVH, mild MR
- IV Lasix 60mg BID - requires intensive monitoring of I/Os, weights, labs.
- Cards following
acute cholecystitis s/p perc leigio tube 07/17
hx of Choledocholithiasis
- CT: There is gallbladder wall thickening with mild pericholecystic edema suggesting cholecystitis. There is a percutaneous cholecystotomy tube with its tip coiled in the gallbladder. Along the course of the cholecystotomy tube, there is small
volume fluid and moderate inflammatory change between the liver and the overlying musculature suggesting possible leak.
- site with some pus drainage, redness - d/w GS, this is not uncommon with chronic catheters
- s/p IRAD tube check with tube exchange
- start diet
Abdominal distention, possible ascites
- improving with diuresis
Acute on chronic anemia
- prior GI workup unrevealing for bleeding syndromes
- s/p 1 unit PRBC, Hb 8.1
ILD
Chronic hypoxic Resp failure, 6L
- continue steroids, scheduled nebs
CAD
Prostate Cancer hx
Essential HTN
- continue CCB/BB
HLD - Statin
GERD - PPI
DVT ppx: SCDs
Code: Full
Anticipated Discharge: > 48 hours
Subjective/Interval History
-
Date of Service: September 18, 2023
s/p per eligio tube exchange
reports improvement in abd distention
weight down 2kg per scales
Objective Data
-
Labs:
Laboratory Results
09/18/23 09/18/23
05:41 05:42
WBC 3.8 L
Hgb 8.1 L D
Hct 25.8 L
Plt Count 183
PT 14.9 H
INR 1.19
Sodium 139
Potassium 3.4 L
Chloride 96 L
Carbon Dioxide 34 H
BUN 26 H
Creatinine 1.0
Glucose 87
Calcium 8.6
Vital Signs:
Vital Signs
Temp Pulse Resp BP Pulse Ox
97.5 F 65 18 129/55 100
09/18/23 11:00 09/18/23 11:00 09/18/23 11:00 09/18/23 11:00 09/18/23 11:00
I&O
09/17/23 09/18/23 09/19/23
06:59 06:59 06:59
Intake Total 470 / 470
Output Total 2620 / 2620
Balance -2150 / -2150
Physical Exam
-
General: Appears Chronically Ill
HEENT: Normocephalic and Atraumatic
Respiratory: Rales; Negative Wheezes
Cardiac: Regular Rhythm and S1/S2
GI: Soft, Nontender and Other (perc eligio tube, bilious output)
Genito-urinary: No Costovertebral Tender
Musculoskeletal: No Edema
Neuro: AO x 3
Hematologic / Lymphatic: No Lymphadenopathy
Psych: Calm
Data Reviewed
-
Total Time Spent with Patient (in minutes): 51
Labs: Labs Reviewed by me
--- NOTE | 2023-09-18 15:24 | PN.IRAD.UPD ---
Update Note - IRAD
- -
WENT BEDSIDE AT 1515 TO [facility] PATIENT'S [facility]TE[facility] TUBE PER DR REYES. REDRESSED SITE, CAPPED TUBE, AND WILL SEND UP A DRAINAGE BAG TO THE NURSE TO SEND HOME WITH PATIENT UPON DISCHARGE IN CASE IT IS NEEDED. AP
--- NOTE | 2023-09-18 15:55 | CM ---
Spoke with pt at bedside
Pt lives in independent living at [facility]
Prepares own meals, [facility], no longer drives
Currently receiving Hospice services with [facility], plans to resume services when d/c'ed from hospital
DME - oxygen (baseline 6L), hospital bed, rollator, rolling walker, cane
Denies past SNF/HH
Has ride at d/c
PCP - Nishi Davis [employer]
Pharm [facility]
Plan - return to previous setting and resume hospice with [facility]
[2023-09-18] MEDS: LIPITOR 20 MG PO (17:01)
[2023-09-19] MEDS: ZOSYN 50 IV ×3 (02:50→14:47)
[2023-09-19] MEDS: FLUSH (NSS) 2 FLUSH IV ×2 (02:51→06:33)
[2023-09-19 03:36] VITALS: BP 124/61
[2023-09-19 05:52] LABS: Hematocrit 27.4 % (39.0-52.0); Hemoglobin 8.5 g/dL (13.0-18.0); Mean Corpuscular Hgb 27.2 pg (27.0-31.0); Mean Corpuscular Volume 87.5 fL (80.0-94.0); Mean Platelet Volume 10.9 fL (7.4-10.4); Platelet Count 225 10^3/uL (130-400); Red Blood Cell Count 3.13 10^6/uL (4.70-6.10); Red Cell Dist. Width 16.5 % (11.5-14.5); White Blood Cell Count 6.6 10^3/uL (4.8-10.8)
[2023-09-19 06:00] VITALS: BMI 23.8
[2023-09-19 06:12] LABS: Blood Urea Nitrogen 39 mg/dl (9-20); Calcium 8.5 mg/dl (8.4-10.2); Carbon Dioxide 31 mmol/L (22-30); Chloride 98 mmol/L (98-107); Estimated Creatinine Clearance 35 ml/min; Glucose 93 mg/dl (70-99); Potassium 3.3 mmol/L (3.5-5.1); Sodium 136 mmol/L (135-145)
[2023-09-19] MEDS: MORPHINE SULFATE 2 MG IV (06:33)
[2023-09-19 06:41] VITALS: BMI 23.8
[2023-09-19 07:00] VITALS: BP 137/55
[2023-09-19] MEDS: IMDUR (EXTENDED RELEASE) 120 MG PO (08:18)
[2023-09-19] MEDS: DELTASONE 10 MG PO (08:18)
[2023-09-19] MEDS: PROTONIX 40 MG PO (08:18)
[2023-09-19] MEDS: ASPIR LOW (ENTERIC COATED) 81 MG PO (08:18)
[2023-09-19] MEDS: NORVASC 2.5 MG PO (08:19)
[2023-09-19] MEDS: HEPARIN 5000 UNITS SC (08:19)
[2023-09-19] MEDS: TOPROL XL 75 MG PO (08:19)
[2023-09-19] MEDS: LASIX 60 MG IV (08:20)
[2023-09-19] MEDS: XOPENEX 0.63 MG INHALANT SOLUTION 0.630000000000000004 MG INH ×2 (08:33→14:11)
[2023-09-19] MEDS: KCL 40 MEQ PO (08:56)
--- NOTE | 2023-09-19 09:50 | W.PN.CD ---
Today's Communication / Plan
-
creatinine up to 1.3. Hold diuretic and reassess in AM
Impression / Plan
-
Cholecystitis:
-CT abd/pelvis as noted with possible coiling/leak and GS/IR consulted
Vdoav-oc-xuftcqw HFpEF:
-BNP elevated and CXR suggestive excess volume
-regarding weight, patient tells me he lost some weight after cholecystitis diagnosis in June, but then it came back on (was 146 lbs he thinks, now back down to 140). Edema improved per patient.
-Hypokalemia noted and being replaced
-creatinine up to 1.3. Hold diuretic and reassess in AM
Moderate MR and :
-echo updated this AM- pending
CAD with hx stenting:
-gets angina at times, resolves with nitro
-continue ASA, statin, and BB
Anemia:
-improved s/p PRBC
-follow
ILD:
-on steroids, O2, nebs
Physical Exam
Vital Signs/Labs
Vital Signs
Temp Pulse Resp BP Pulse Ox
98.8 F 101 18 137/55 97
09/19/23 07:00 09/19/23 08:33 09/19/23 08:33 09/19/23 08:19 09/19/23 08:33
09/18/23 09/19/23 09/20/23
06:59 06:59 06:59
Actual Weight 64.183 kg 65.005 kg
09/19/23 05:32
09/19/23 05:32
PT 14.9 Sec (11.4-14.6) H 09/18/23 05:42
INR 1.19 09/18/23 05:42
Magnesium 2.1 mg/dl (1.6-2.3) 09/18/23 05:41
09/17/23
13:30
Mqy-Z-Ywanyynkzzn Pept 4280
LAB Results
09/17/23
13:30
Troponin I 0.019
Physical Exam
Constitutional: No acute distress
Cardiovascular: Rhythm & rate is regular
Respiratory: Wheeze Absent and Rhonchi Absent
GI: Soft and Non tender
Neuro/Psych: Alert
Other: Other (complains hands hurt)
Data Reviewed
-
Date of Service: September 19, 2023
Medical Decision Making: Reviewed Test Results
Medical Tests (PFT, Pathology etc): Report Reviewed by me
Labs: Labs Reviewed by me
--- NOTE | 2023-09-19 10:12 | W.PN.HOSP.TC ---
Today's Communication/Plan
-
dc home back on hospice
Assessment / Plan
Assessment / Plan
Assessment:
Acute on chronic HFpEF
- BNP 4280
- cxr: blunting of both posterior sulci consistent with small bilateral pleural effusions and there is cephalization of vasculature suggesting elevated pulmonary venous pressures/borderline pulmonary edema
- latest Echo 02/12: EF 75%, moderate MR, moderate , trace TR
- Echo this admit: EF 60%, stage 1DD, LVH, mild MR
- s/p IV Lasix
- resume home Lasix
- dc on KCL 40 daily
- OP Cards f/u next week
acute cholecystitis s/p perc eligio tube 07/17
hx of Choledocholithiasis
- CT: There is gallbladder wall thickening with mild pericholecystic edema suggesting cholecystitis. There is a percutaneous cholecystotomy tube with its tip coiled in the gallbladder. Along the course of the cholecystotomy tube, there is small
volume fluid and moderate inflammatory change between the liver and the overlying musculature suggesting possible leak.
- site with some pus drainage, redness - d/w GS, this is not uncommon with chronic catheters
- s/p IRAD tube check with tube exchange
- tolerating diet, no pain
Abdominal distention, possible ascites
- improving with diuresis
Acute on chronic anemia
- prior GI workup unrevealing for bleeding syndromes
- s/p 1 unit PRBC, Hb 8.5
ILD
Chronic hypoxic Resp failure, 6L
- continue steroids, scheduled nebs
CAD
Prostate Cancer hx
Essential HTN
- continue CCB/BB
HLD - Statin
GERD - PPI
DVT ppx: SCDs
Code: Full
More than 30 minutes spent in discharge including
Final examination of the patient
Summarizing hospital stay
Instructions for continuing care to all relevant caregivers
Preparation of discharge records, prescriptions, and referral forms
Total time spent (in minutes): 42
Anticipated Discharge: Today
Subjective/Interval History
-
Date of Service: September 19, 2023
feels well, no complaints
Objective Data
-
Labs:
Laboratory Results
09/19/23
05:32
WBC 6.6
Hgb 8.5 L
Hct 27.4 L
Plt Count 225 D
Sodium 136
Potassium 3.3 L
Chloride 98
Carbon Dioxide 31 H
BUN 39 H
Creatinine 1.3
Glucose 93
Calcium 8.5
Vital Signs:
Vital Signs
Temp Pulse Resp BP Pulse Ox
98.8 F 101 18 137/55 97
09/19/23 07:00 09/19/23 08:33 09/19/23 08:33 09/19/23 08:19 09/19/23 08:33
I&O
09/18/23 09/19/23 09/20/23
06:59 06:59 06:59
Intake Total 470 / 470 1620 / 1620
Output Total 2620 / 2620 1400 / 1400
Balance -2150 / -2150 220 / 220
Physical Exam
-
General: No Apparent Distress
HEENT: Normocephalic and Atraumatic
Respiratory: Rales; Negative Wheezes
Cardiac: Regular Rhythm and S1/S2
GI: Soft and Nontender
Genito-urinary: No Costovertebral Tender
Musculoskeletal: No Edema
Neuro: AO x 3
Psych: Calm
Data Reviewed
-
Total Time Spent with Patient (in minutes): 41
Labs: Labs Reviewed by me
--- NOTE | 2023-09-19 10:20 | W.DS.TRANS ---
DC Summary - [employer] Representative
-
Discharge Instructions:
Sleep Apnea Risk Low
Discharge Diagnosis/Procedures acute CHF, incomplete bile drainage needing
upsizing of tube
Diet 2 Gram Sodium,Restrict fluids to 48 oz
Activity As tolerated
Bathing Restrictions None
Other Services Hospice
Instructions: *[facility] Heart Failure Instructions
Stand-Alone Forms:
Changes to Home Medications: Yes
Discharge Medications:
DC Medications w/original date entered in [facility]
yqtmfhek-ude-unsly acid 0.4 mg-lycopene 300 mcg-lutein 250 mcg tablet (Centrum Silver) 1 ea PO DAILY Supplement 11/09/16
nitroglycerin 0.4 mg sublingual tablet 0.4 mg sublingual [id number] PRN chest pain 11/09/16
atorvastatin 20 mg tablet (Lipitor) 20 mg PO QPM High cholesterol 01/15/22
aspirin 81 mg tablet,delayed release 81 mg PO DAILY Blood clot prevention/tx 02/14/22
pantoprazole 40 mg tablet,delayed release 40 mg PO BID Gastrointestinal issue #45 tabs 02/21/22
metoprolol succinate 25 mg tablet,extended release 24 hr 75 mg (3 x 25 mg) PO BID 30 days #180 tabs 03/02/22
furosemide 40 mg tablet 40 mg PO BID@0800,1200 Fluid retention/Swelling 04/15/22
guaifenesin 600 mg tablet, extended release 12 hr (Mucinex) 600 mg PO [id number] PRN congestion 04/15/22
prednisone 10 mg tablet 10 mg PO DAILY Anti-inflammatory 04/15/22
acetaminophen 325 mg tablet 650 mg (2 x 325 mg) PO Q4HPRN PRN mild pain/AG/temp> 100.4F #0 tabs 04/19/22
amlodipine 2.5 mg tablet 2.5 mg PO DAILY blood pressure 07/02/23
morphine concentrate 100 mg/5 mL (20 mg/mL) oral solution 10 mg PO Q6H pain 07/02/23
isosorbide mononitrate 120 mg tablet,extended release 24 hr 120 mg PO DAILYPRN PRN bp geater then 120 09/17/23
levalbuterol HCl 0.63 mg/3 mL solution for nebulization 0.63 mg inhalation R TID Lung/Breathing Issues 09/17/23
amoxicillin 500 mg-potassium clavulanate 125 mg tablet 1 tab PO BID #6 tabs 09/19/23
potassium chloride 20 mEq tablet,extended release(part/cryst) 40 meq (2 x 20 mEq) PO DAILY #60 tabs 09/19/23
Home Medication Changes
KCL added
Pending Results: No
Total time spent discharging patient (in min): 42
--- NOTE | 2023-09-19 10:36 | CM ---
Pt for d/c today
Daughter will transport home, will bring portable oxygen
Spoke with Cassie at [facility] - will resume services when pt returns home
Plan - home to previous setting will resume service with [facility]
[2023-09-19 11:00] VITALS: BP 134/65
[2023-09-19 15:00] VITALS: BP 120/57
== END 2023-09-19 16:22 | disposition hospice, home (50) | DRG 981 ==
LOC: 3 WEST ACU 18:27
PROVIDERS: Emergency Medicine; Physician Assistant Medical; Radiology Diagnostic Radiology; ADMITTING PHYSICIAN Internal Medicine; CONSULT PHYSICIAN Surgery; EMERGENCY PHYSICIAN Emergency Medicine; FAMILY PHYSICIAN Nurse Practitioner Adult Health; OTHER PHYSICIAN Internal Medicine
PROC: 30233N1 Transfusion of Nonautologous Red Blood Cells into Peripheral Vein, Percutaneous Approach (ICD-10-PCS; 2023-09-17)
PROC: 0FP430Z Removal of Drainage Device from Gallbladder, Percutaneous Approach (ICD-10-PCS; 2023-09-18)
PROC: 0F9430Z Drainage of Gallbladder with Drainage Device, Percutaneous Approach (ICD-10-PCS; 2023-09-18)
DX: T85.590A Other mechanical complication of bile duct prosthesis, initial encounter (principal); I50.33 Acute on chronic diastolic (congestive) heart failure; J96.11 Chronic respiratory failure with hypoxia; K81.0 Acute cholecystitis; Z66 Do not resuscitate; I11.0 Hypertensive heart disease with heart failure; D64.9 Anemia, unspecified; J84.112 Idiopathic pulmonary fibrosis; I25.10 Atherosclerotic heart disease of native coronary artery without angina pectoris; Z95.5 Presence of coronary angioplasty implant and graft; E78.00 Pure hypercholesterolemia, unspecified; K21.9 Gastro-esophageal reflux disease without esophagitis; Z79.82 Long term (current) use of aspirin; E87.6 Hypokalemia; R14.0 Abdominal distension (gaseous); Y84.8 Other medical procedures as the cause of abnormal reaction of the patient, or of later complication, without mention of misadventure at the time of the procedure
CPT/HCPCS: 47536; 71046; 74177; 80048; 80053; 82607; 82728; 82746; 83540; 83550; 83735; 83880; 84443; 84484; 85025; 85027; 85610; 86850; 86900; 86901; 86920; 93005; 93306; 94640; 99285; C1729; C1769; P9016; Q9967

== ENCOUNTER 2023-10-17 02:59 | Emergency (ER) | payer MEDICARE, BC, SELFPAY ==
[2023-10-17 03:03] VITALS: BP 144/64
--- NOTE | 2023-10-17 03:57 | ED.GENMED ---
History of Present Illness
<JESSA Mace - Last Filed: 10/17/23 05:55>
General
Chief Complaint: Catheter/Tube Problem
Source: patient and family
Exam Limitations: none
Time Seen by Provider: 10/17/23 03:30
Nursing documentation reviewed up to this point in time: agreed with
Travel History
Have you had any contact with someone who has COVID-19?: No
Do you have any symptoms of coronavirus? Fever > 100 degrees, chills, cough, shortness of breath, sore throat, loss of taste or smell, muscle aches, or headache?: No
History of Present Illness
History of Present Illness:
88-year-old male with a history of interstitial lung disease and chronic respiratory failure on 6 L nasal cannula chronically, chronic cholecystitis presents to the ER after his biliary drain fell out x2 hours. Patient's daughter by bedside. Patient
states he was walking to the bathroom when he noticed his biliary drain was out of place. He states the visiting nurse came by this week for dressing change and did not notice anything wrong with the drain at the time. Patient denies any pain at the
drain site. He does report having some abdominal distention describing it as a tight band around his chest/abdomen. He reports MOSQUERA is at baseline and not worsening. He denies chest pain, headache, NVD, or fevers.
Past History
<JESSA Mace - Last Filed: 10/17/23 05:55>
Past History
ED Past Medical History: CAD, Cancer (Prostate), CHF, GERD, HTN, Hypercholesterolemia, Valvular disease (Aortic stenosis) and Other (Interstitial lung disease)
ED Past Surgical History: Appendectomy, Cardiac (PTCA with stent), Orthopedic, Urological (Prostatectomy) and Other (Prostatectomy)
Social History
Tobacco: 2nd hand smoke exposure
Personal:
Living: with family
Employment: Retired
Review of Systems
<JESSA Mace - Last Filed: 10/17/23 05:55>
Review of Systems
Allergies reviewed?: Yes
All Other Systems: Not applicable
Constitutional: Reports no symptoms
EENT: Reports no symptoms
Respiratory: Reports no symptoms
Cardiac: Reports no symptoms
ABD/GI: Reports abdominal pain (Abdominal distention )
: Reports no symptoms
Musculoskeletal: Reports no symptoms
Skin: Reports no symptoms
Neurological: Reports no symptoms
Endocrine: Reports no symptoms
Hematologic/Lymphatic: Reports no symptoms
Psychiatric: Reports no symptoms
Phy Exam
<Annette Wei [facility] - Last Filed: 10/17/23 05:55>
General Physical Exam
General Presentation: well appearing and no apparent distress
General Skin: warm and dry
General Habitus: normal
General Mental: alert
General Hydration: appears well hydrated
ENT Exam
ENT Exam: EOMI, pharynx normal, neck supple and normocephalic
Eye Exam
Eye Exam: PERRL, cornea clear and conjunctiva normal
Cardiovascular Exam
Cardiovascular Exam: regular rate/rhythm, no edema, no murmur and normal peripheral pulses
Pulmonary Exam
Pulmonary Exam: lungs clear, no respiratory distress, no rales, no crackles, no rhonchi, no stridor, no wheezing and no cough
Gastrointestinal Exam
Gastrointestinal Exam: normal bowel sounds, non tender, no organomegaly, no pulsatile mass and distended
External Findings: biliary drainage tube (Surgical site erythematous with discharge, biliary drainage tube not in place)
Neurological Exam
Neurological Exam: alert, oriented x3, no motor deficits and speech normal
Musculoskeletal Exam
Musculoskeletal Exam: full ROM and no edema
Skin Exam
Skin Exam: normal color, warm/dry, no rash and no petechia
Psychiatric Exam
Psychiatric Exam: normal mood/affect
Course
<Annette Wei [facility] - Last Filed: 10/17/23 05:55>
Orders/Labs/Results
Orders:
Orders
10/17/23 03:55
Furosemide [Lasix] 80 mg IV NOW STA
10/17/23 03:56
Electrocardiogram (*1) Urgent
Reason for Study: Chest Pain
EKG- Treatment ONCE
CR Chest - 2 Views Urgent
Comment:
Reason For Exam: abd bloating x 2 days, SOB
10/17/23 04:32
Complete Blood Count/With Diff Urgent
Comprehensive Metabolic Panel Urgent
Lipase Urgent
NT-proBNP Urgent
Troponin I Urgent
10/17/23 04:36
Wound Culture [Wound/Abscess/Other Culture] Urgent
CLAUDE Source: Abdomen
Specimen Description:
Date Specimen was Collected: 10/17/23
Time Specimen was Collected: 04:32
Comment: R biliary drain site
Abnormal Lab Results
10/17/23
04:32
RBC 2.86 L 10^6/uL
(4.70-6.10)
Hgb 7.3 L g/dL
(13.0-18.0)
Hct 24.3 L %
(39.0-52.0)
MCH 25.5 L pg
(27.0-31.0)
MCHC 30.0 L g/dL
(33.0-37.0)
RDW 17.4 H %
(11.5-14.5)
Abs Immat Gran (auto) 0.1 H 10^3/uL
(0-0.05)
Absolute Lymphs (auto) 1.1 L 10^3/uL
(1.2-3.4)
Absolute Monos (auto) 0.9 H 10^3/uL
(0.1-0.6)
Immature Gran % 1.1 H %
(0-0.5)
Lymphocytes % 14.1 L %
(20.5-51.1)
Monocytes % 11.8 H %
(1.7-9.3)
Carbon Dioxide 31 H mmol/L
(22-30)
BUN 36 H mg/dl
(9-20)
Creatinine 1.4 H mg/dL
(0.7-1.3)
10/17/23 04:32
10/17/23 04:32
Vital Signs
Initial and Last Documented VS:
Initial Vital Signs
Temp Pulse Resp BP Pulse Ox
98.0 F 78 20 144/64 99
10/17/23 03:03 10/17/23 03:03 10/17/23 03:03 10/17/23 03:03 10/17/23 03:03
Last Documented Vital Signs
Temp Pulse Resp BP Pulse Ox
98.0 F 75 13 144/64 99
10/17/23 03:03 10/17/23 05:00 10/17/23 05:00 10/17/23 03:03 10/17/23 03:03
Rezalt;Isabel Schultz, - Last Filed: 10/17/23 06:29>
Orders/Labs/Results
Orders:
Orders
10/17/23 03:55
Furosemide [Lasix] 80 mg IV NOW STA
10/17/23 03:56
Electrocardiogram (*1) Urgent
Reason for Study: Chest Pain
EKG- Treatment ONCE
CR Chest - 2 Views Urgent
Comment:
Reason For Exam: abd bloating x 2 days, SOB
10/17/23 04:32
Complete Blood Count/With Diff Urgent
Comprehensive Metabolic Panel Urgent
Lipase Urgent
NT-proBNP Urgent
Troponin I Urgent
10/17/23 04:36
Wound Culture [Wound/Abscess/Other Culture] Urgent
CLAUDE Source: Abdomen
Specimen Description:
Date Specimen was Collected: 10/17/23
Time Specimen was Collected: 04:32
Comment: R biliary drain site
Abnormal Lab Results
10/17/23
04:32
RBC 2.86 L 10^6/uL
(4.70-6.10)
Hgb 7.3 L g/dL
(13.0-18.0)
Hct 24.3 L %
(39.0-52.0)
MCH 25.5 L pg
(27.0-31.0)
MCHC 30.0 L g/dL
(33.0-37.0)
RDW 17.4 H %
(11.5-14.5)
Abs Immat Gran (auto) 0.1 H 10^3/uL
(0-0.05)
Absolute Lymphs (auto) 1.1 L 10^3/uL
(1.2-3.4)
Absolute Monos (auto) 0.9 H 10^3/uL
(0.1-0.6)
Immature Gran % 1.1 H %
(0-0.5)
Lymphocytes % 14.1 L %
(20.5-51.1)
Monocytes % 11.8 H %
(1.7-9.3)
Carbon Dioxide 31 H mmol/L
(22-30)
BUN 36 H mg/dl
(9-20)
Creatinine 1.4 H mg/dL
(0.7-1.3)
10/17/23 04:32
10/17/23 04:32
Vital Signs
Initial and Last Documented VS:
Initial Vital Signs
Temp Pulse Resp BP Pulse Ox
98.0 F 78 20 144/64 99
10/17/23 03:03 10/17/23 03:03 10/17/23 03:03 10/17/23 03:03 10/17/23 03:03
Last Documented Vital Signs
Temp Pulse Resp BP Pulse Ox
98.0 F 75 13 144/64 99
10/17/23 03:03 10/17/23 05:00 10/17/23 05:00 10/17/23 03:03 10/17/23 03:03
<JESSA Mace - Last Filed: 10/17/23 05:55>
MDM/Problems Addressed
Differential Diagnosis Includes:
Biliary drain tube irritation vs infection
Infection considered due to erythematous site with some drainage. Obtained a culture and will get labs. Patient denies any chills or fevers. I suspect biliary drain tube irritation due to tube being accidentally removed.
<JESSA Mace - Last Filed: 10/17/23 05:55>
*Critical Care Note
Total Time (30-74mins, 75-104mins- exclusive of procedures): Not Applicable
<Isabel Schultz DO - Last Filed: 10/17/23 06:29>
*Radiology
Radiology exam reviewed: preliminary read by ED provider (Chest x-ray shows mild interstitial lung disease, previous posterior pleural effusion has resolved. No evidence of CHF.)
*Pulse Oximetry
Patient hypoxic: no
*EKG
Interpreted by ED Provider?: Yes
Comparison EKG: no changes (Unchanged from previous August 2023)
Rate: normal
Rhythm: sinus
Cushing: left axis deviation
Interval: normal interval
QRS Pattern: poor R-wave progression
Ischemia: no ischemia
*Registered Nurse Bone Marrow Transplant Interpretation
Rate: normal
Interpretation: normal
Rhythm: sinus
*Critical Care Note
Total Time (30-74mins, 75-104mins- exclusive of procedures): Not Applicable
ED Attending Note
<JESSA Mace - Last Filed: 10/17/23 05:55>
-
Portions of this chart may have been created with voice recognition software.� Occasional wrong word or��sound alike� substitutions may have occurred due to the inherent limitations of voice recognition software.
<Isabel Schultz DO - Last Filed: 10/17/23 06:29>
ED Attending Note
Patient seen and examined by attending physician: Yes
I performed the substantive portion of visit, reviewed & personally made and approve the management plan that is documented in note by myself or AMARI.: Yes
I performed a history and physical exam of patient and discussed management with resident, I reviewed resident's note and agree with documented findings and plan of care.: Yes
ED Attending Note:
This is an 88-year-old gentleman who has history of chronic CHF, interstitial lung disease chronically maintained on nasal cannula oxygen at 6 L. He has history of chronic anemia, CAD, hypertension, GERD and was hospitalized in June with acute
cholecystitis. Due to multiple chronic due to to advanced age and multiple chronic conditions patient found to be a poor surgical risk and acute cholecystitis treated conservatively with biliary tube and antibiotics.
Most recently hospitalized September 16 to September 18 due to persistent leaking of bile around biliary tube as well as several day history of upper abdominal bloating. Abdominal bloating thought to be acute on chronic CHF in nature and biliary tube was
exchanged to a larger size by IR. He was discharged to home to continue his usual dose of Lasix 40 mg twice daily, discharged with a 3-day course of Augmentin.
He resides at home and is currently receiving hospice/palliative care at home.
He returns to the ED this morning after noticing biliary tube inadvertently fell out. Despite larger tube size he continues with some leaking of biliary fluid around the catheter and has noticed some redness around catheter site.
He has also noticed 2-day history of upper abdominal bloating. He does note some dyspnea on exertion that is chronic and unchanged. He has not had a fever nor chills. He also notes some intermittent chest discomfort that has been an
ongoing/chronic issue as well.
The daughter called color strainer office yesterday and noted upper abdominal bloating and was recommended to increase a.m. dose of Lasix to 80 mg over the next week, continuing evening dose of 40 mg. This increased dose of Lasix was to start this
morning, October 16.
He denies abdominal pain. Appetite has been fair, essentially unchanged. Mild bilateral lower extremity edema which is stable and unchanged.
He is chronically maintained on morphine 10 mg 4 times daily. He reports passing a bowel movement once per day but bowel movements have been quite hard and he admits to significant pushing to pass a bowel movement. He has had no hematochezia,
denies black or tarry stools. No nausea nor vomiting. No dizziness nor lightheadedness.
GENERAL: 88-year-old frail appearing gentleman is bright and alert, pleasant, appears in no acute distress. Easily communicative. Nasal cannula oxygen at [address] No respiratory distress. Daughter is accompanying.
EYE: anicteric
NECK: Supple, nontender, no meningismus, no significant adenopathy.
ENT: oral mucosa is moist. No rhinorrhea.
CARDIAC: Regular rate and rhythm. no murmur.
LUNGS: no acute respiratory distress, scant bibasilar rales otherwise clear to auscultation.
ABDOMEN: Soft, nondistended, without focal tenderness, no r/g, no cvat. normoactive BS. Right upper lateral quadrant biliary tube site has very minimal surrounding erythema and is draining clear yellow to minimally mucoid fluid. Just below biliary
tube orifice is a small erythematous slightly raised patch that is nontender to palpation. No palpable heat.
NEUROLOGICAL: Alert and oriented x3, no focal neuro deficits.
SKIN: Warm and dry, mildly pale in color, fair turgor.
MUSCULOSKELETAL: Minimal/trace pretibial edema bilateral lower extremities, peripheral pulses are full and equal b/l. No palpable tenderness.
PSYCH: Normal and appropriate interaction.
Patient presents after biliary drainage tube has inadvertently become dislodged. There is note of very mild erythema surrounding biliary tube orifice but no significant erythema, no palpable heat. This may be local skin irritation versus early
cellulitis.
He presents with 2-day history of upper abdominal bloating without pain and no appreciable tenderness to palpation.
Concern for acute on chronic cholecystitis, acute on chronic CHF, acute on chronic constipation.
He does note intermittent chest pain that, according to daughter is chronic in nature. Concern for ACS.
Will check EKG, labs including BNP, troponin. Will plan for an IV dose of Lasix 80 mg now.
Will check chest x-ray.
Will plan for IR consult in the morning for replacement of biliary drainage tube.
10/17/2023 0614 AM
Patient diuresing well after IV Lasix.
Continues to appear comfortable.
Labs show moderate but stable anemia. Normal white blood cell count.
BNP is elevated at 1500 but markedly improved from previous in August at 4200.
Creatinine elevated at 1.4, has trended up from August at 1.3.
LFTs within normal limits. Lipase is normal.
Troponin is normal as well.
Chest x-ray shows no evidence of CHF and previous posterior effusion has resolved.
EKG shows normal sinus rhythm, left axis deviation, similar and unchanged from previous EKG September 17, 2023.
At this point nothing to signify acute decompensated CHF, nothing to definitively signify acute infectious process.
IR has been consulted with plan for biliary tube replacement this a.m.
Will continue to observe in the ED and if patient remains stable we will plan for discharge to home after biliary tube replacement.
With uptrend in creatinine and markedly improved BNP and improvement in chest x-ray would recommend returning to usual 40 mg twice daily Lasix dose going forward with prompt follow-up with cardiology.
With plan for biliary manipulation will plan to initiate short course of antibiotics/Augmentin.
I suspect an element of his upper abdominal bloating is constipation in nature and recommend he start a stool softener on a daily basis.
Discharge Plan
Departure
Patient with high blood pressure during this ER visit?: No
Condition: Good
Discharge Problem:
Encounter for biliary drainage tube placement, Constipation
Instructions: Dealing with Constipation from the Drugs You Take, *CBC Heart Failure Instructions
Prescriptions:
New
amoxicillin-pot clavulanate [Augmentin] 500-125 mg tablet
1 tab PO BID Qty: 10 0RF
No Action
nitroglycerin 0.4 MG tablet, sublingual
0.4 mg sublingual [id number] PRN (Reason: chest pain)
Centrum Silver 1 EACH tablet
1 ea PO DAILY
atorvastatin [Lipitor] 20 mg Tablet
20 mg PO QPM
aspirin 81 mg Tablet,Delayed Release (Dr/Ec)
81 mg PO DAILY
Hold Instructions: hold for 5 days
pantoprazole 40 mg Tablet,Delayed Release (Dr/Ec)
40 mg PO BID Qty: 45 0RF
metoprolol succinate 25 mg tablet extended release 24 hr
75 mg PO BID 30 Days Qty: 180 0RF
prednisone 10 mg tablet
10 mg PO DAILY
guaifenesin [Mucinex] 600 mg Tablet Extended Release 12hr
600 mg PO [id number] PRN (Reason: congestion)
furosemide 40 mg tablet
40 mg PO BID@0800,1200
acetaminophen 325 mg Tablet
650 mg PO Q4HPRN PRN (Reason: mild pain/AG/temp> 100.4F) Qty: 0 0RF
morphine concentrate 100 mg/5 mL (20 mg/mL) solution
10 mg PO Q6H
Patient Comments:
07/02/2023: last filled 06/27/23, 30ml for 3 days from [facility]
amlodipine 2.5 mg tablet
2.5 mg PO DAILY
levalbuterol HCl 0.63 mg/3 mL Solution For Nebulization
0.63 mg INHALATION R TID
isosorbide mononitrate 120 MG tablet extended release 24 hr
120 mg PO DAILYPRN PRN (Reason: bp geater then 120)
Rx Instructions:
hold if systolic blood pressure <110
potassium chloride 20 mEq Tablet,Er Particles/Crystals
40 meq PO DAILY Qty: 60 0RF
amoxicillin-pot clavulanate 500-125 mg tablet
1 tab PO BID Qty: 6 0RF
Referrals:
Kristan Hubbard CRNP [Family Provider] -
Interventions
Interventions:
*Risk Screen - Suicide Last Done: 10/17/23 03:03
*General Assessment Last Done: 10/17/23 04:35
*Neglect/Abuse Screening Last Done: 10/17/23 03:03
ED- Fall Risk Assessment Last Done: 10/17/23 04:35
*ED COVID-19 Vaccine History Last Done: 10/17/23 03:03
EI-Thjiaf-Hslzlqsahq Assessment Last Done: 10/17/23 04:35
Discharge Date and Time
Print Language: MONGOLIAN
[2023-10-17] MEDS: LASIX 80 MG IV (04:33)
[2023-10-17 04:34] VITALS: BMI 25.3
[2023-10-17 04:39] LABS: % Basophils 0.3 % (0-2); % Eosinophils 0.1 % (0-6); % Immature Granulocytes 1.1 % (0-0.5); % Lymphocytes 14.1 % (20.5-51.1); % Monocytes 11.8 % (1.7-9.3); % Neutrophils 72.6 % (42.2-75.2); Absolute Immature Granulocytes 0.1 10^3/uL (0-0.05); Absolute Lymphocytes 1.1 10^3/uL (1.2-3.4); Absolute Monocytes 0.9 10^3/uL (0.1-0.6); Absolute Neutrophils 5.5 10^3/uL (1.4-6.5); Hematocrit 24.3 % (39.0-52.0); Hemoglobin 7.3 g/dL (13.0-18.0); Mean Corpuscular Hgb 25.5 pg (27.0-31.0); Mean Platelet Volume 10.3 fL (7.4-10.4); Nucleated Red Blood Cells % 0 % (-); Platelet Count 229 10^3/uL (130-400); Red Blood Cell Count 2.86 10^6/uL (4.70-6.10); Red Cell Dist. Width 17.4 % (11.5-14.5); White Blood Cell Count 7.6 10^3/uL (4.8-10.8)
[2023-10-17 04:59] LABS: ALT (SGPT) 17 U/L (0-50); AST (SGOT) 27 U/L (17-59); Albumin 3.8 g/dl (3.5-5.0); Alkaline Phosphatase 81 U/L (38-126); Blood Urea Nitrogen 36 mg/dl (9-20); Calcium 8.5 mg/dl (8.4-10.2); Carbon Dioxide 31 mmol/L (22-30); Chloride 101 mmol/L (98-107); Estimated Creatinine Clearance 33 ml/min; Glucose 83 mg/dl (70-99); Lipase 72 U/L (23-300); Sodium 136 mmol/L (135-145); Total Bilirubin 0.6 mg/dl (0.2-1.3); Total Protein 6.3 g/dl (6.3-8.2); eGFR 48.95
[2023-10-17 05:05] LABS: NT-proBNP 1540 pg/ml; Troponin I < 0.012 ng/ml
[2023-10-17 08:57] VITALS: BP 129/56
[2023-10-17 09:00] VITALS: BP 123/56
== END 2023-10-17 10:38 | disposition home or self-care (01) ==
LOC: EMR 02:59
PROVIDERS: CONSULT PHYSICIAN Radiology Vascular & Interventional Radiology; EMERGENCY PHYSICIAN Emergency Medicine; FAMILY PHYSICIAN Nurse Practitioner Adult Health
DX: T85.520A Displacement of bile duct prosthesis, initial encounter (principal); Y73.8 Miscellaneous gastroenterology and urology devices associated with adverse incidents, not elsewhere classified; K59.00 Constipation, unspecified; Z48.03 Encounter for change or removal of drains; I50.9 Heart failure, unspecified; I11.0 Hypertensive heart disease with heart failure; K21.9 Gastro-esophageal reflux disease without esophagitis
CPT/HCPCS: 99285; 96374; 47490; 71046; 80053; 83690; 83880; 84484; 85025; 87070; 87077; 87186; 87205; 93005; C1729; C1769

== ENCOUNTER → 2023-11-14 10:07 | Outpatient (REF) | payer MEDICARE, BC, SELFPAY | LOC: RADI 10:07 | PROVIDERS: ATTENDING PHYSICIAN Radiology Vascular & Interventional Radiology | DX: Z48.03 Encounter for change or removal of drains (principal); K81.0 Acute cholecystitis; Z90.49 Acquired absence of other specified parts of digestive tract | CPT/HCPCS: 47531 ==

== ENCOUNTER 2023-12-17 07:20 | Inpatient (IN) | payer MEDICARE, BC, SELFPAY ==
[2023-12-16 14:24] VITALS: BP 150/74
[2023-12-16 14:43] LABS: % Basophils 0.2 % (0-2); % Eosinophils 0.2 % (0-6); % Immature Granulocytes 1.2 % (0-0.5); % Lymphocytes 15.5 % (20.5-51.1); % Monocytes 8.6 % (1.7-9.3); % Neutrophils 74.3 % (42.2-75.2); Absolute Immature Granulocytes 0.1 10^3/uL (0-0.05); Absolute Lymphocytes 0.9 10^3/uL (1.2-3.4); Absolute Monocytes 0.5 10^3/uL (0.1-0.6); Absolute Neutrophils 4.2 10^3/uL (1.4-6.5); Hematocrit 25.8 % (39.0-52.0); Hemoglobin 7.8 g/dL (13.0-18.0); Mean Corp Hgb Conc. 30.2 g/dL (33.0-37.0); Mean Corpuscular Hgb 25.5 pg (27.0-31.0); Mean Corpuscular Volume 84.3 fL (80.0-94.0); Mean Platelet Volume 11.7 fL (7.4-10.4); Nucleated Red Blood Cells % 0 % (-); Platelet Count 150 10^3/uL (130-400); Red Blood Cell Count 3.06 10^6/uL (4.70-6.10); Red Cell Dist. Width 19.9 % (11.5-14.5); White Blood Cell Count 5.6 10^3/uL (4.8-10.8)
[2023-12-16 15:13] LABS: NT-proBNP 3020 pg/ml; Troponin I < 0.012 ng/ml
[2023-12-16 15:46] LABS: ALT (SGPT) 24 U/L (0-50); AST (SGOT) 40 U/L (17-59); Albumin 4.2 g/dl (3.5-5.0); Alkaline Phosphatase 85 U/L (38-126); Blood Urea Nitrogen 33 mg/dl (9-20); Calcium 8.5 mg/dl (8.4-10.2); Carbon Dioxide 31 mmol/L (22-30); Chloride 100 mmol/L (98-107); Glucose 111 mg/dl (70-99); Sodium 140 mmol/L (135-145); Total Bilirubin 0.7 mg/dl (0.2-1.3); Total Protein 6.7 g/dl (6.3-8.2); eGFR 58.89
--- NOTE | 2023-12-16 16:00 | ED.GENMED ---
History of Present Illness
General
Chief Complaint: Breathing Problem
Source: patient
Exam Limitations: none
Time Seen by Provider: 12/16/23 15:47
History of Present Illness
History of Present Illness:
See MDM
Past History
Past History
ED Past Medical History: CAD, Cancer (Prostate), CHF, GERD, HTN, Hypercholesterolemia, Valvular disease (Aortic stenosis) and Other (Interstitial lung disease)
ED Past Surgical History: Appendectomy, Cardiac (PTCA with stent), Orthopedic, Urological (Prostatectomy) and Other (Prostatectomy)
Social History
Tobacco: 2nd hand smoke exposure
Personal:
Living: with family
Employment: Retired
Phy Exam
Physical Exam
Physical Exam:
See MDM
Scores
Heart Failure Risk
Heart Failure Risk Score: Yes
History of Stroke or TIA: No
History of intubation for respiratory distress: No
Heart rate on ED arrival >/= 110: No
SaO2 <90% on arrival on room air: Yes
HR >/=110 during 3min walk test (or too ill to perform test): Yes
ECG has acute ischemic changes: No
Urea >/=12mmol/L (BUN 33.6mg/dL): No
Serum CO2>/=35mmol/L: No
Troponin I or T elevated to PR Level (0.4mg/dL): No
NT-proBNP >/=5,000ng/L (5,000pg/ml): No
HF Risk Score: 3
Admission Status: HIGH RISK 15.9% Consider SNF treatment or admission to hospital
Course
Orders/Labs/Results
Orders:
Orders
12/16/23 14:27
ECG [Electrocardiogram (*1)] Urgent
Reason for Study: Shortness of Breath
12/16/23 14:28
EKG- Treatment ONCE
12/16/23 14:33
Complete Blood Count/With Diff Urgent
Comprehensive Metabolic Panel Urgent
NT-proBNP Urgent
Troponin I Urgent
12/16/23 15:59
Furosemide [Lasix] 80 mg IV NOW STA
CR Chest Portable - 1 View Urgent
Comment:
Reason For Exam: SOB, hypoxic, leg swelling
Reason Study Needs to be Portable: Patient Unstable
Abnormal Lab Results
12/16/23
14:33
RBC 3.06 L 10^6/uL
(4.70-6.10)
Hgb 7.8 L g/dL
(13.0-18.0)
Hct 25.8 L %
(39.0-52.0)
MCH 25.5 L pg
(27.0-31.0)
MCHC 30.2 L g/dL
(33.0-37.0)
RDW 19.9 H %
(11.5-14.5)
MPV 11.7 H fL
(7.4-10.4)
Abs Immat Gran (auto) 0.1 H 10^3/uL
(0-0.05)
Absolute Lymphs (auto) 0.9 L 10^3/uL
(1.2-3.4)
Immature Gran % 1.2 H %
(0-0.5)
Lymphocytes % 15.5 L %
(20.5-51.1)
Carbon Dioxide 31 H mmol/L
(22-30)
BUN 33 H mg/dl
(9-20)
Glucose 111 H mg/dl
(70-99)
12/16/23 14:33
12/16/23 14:33
Vital Signs
Initial and Last Documented VS:
Initial Vital Signs
Temp Pulse Resp BP Pulse Ox
98.1 F 74 22 150/74 100
12/16/23 14:24 12/16/23 14:24 12/16/23 14:24 12/16/23 14:24 12/16/23 14:24
Last Documented Vital Signs
Temp Pulse Resp BP Pulse Ox
98.1 F 74 22 150/74 100
12/16/23 14:24 12/16/23 14:24 12/16/23 14:24 12/16/23 14:24 12/16/23 14:24
MDM/Problems Addressed
Differential Diagnosis Includes:
HPI and MDM Narrative:
88-year-old male presenting with worsening shortness of breath for the past few days. Patient is on hospice. Patient is followed by cardiology Dr. Nicole. His 40 mg Lasix twice daily was increased to 80 mg twice daily over the past 3 days.
Patient was sent in for IV Lasix.
Family is going to remove him from hospice just for this admission. Patient has required increased oxygen and can only walk a few feet without having to stop for rest.
Physical exam
General: Well appearing and non-toxic
HEENT: protecting airway
Neck: appears supple
CV: No evidence of cyanosis
Resp: No accessory muscle use. Mild crackles at bases
Abd: Non-distended
Extremities: +3 pitting edema bilateral lower extremity
Neuro: alert
Psych: Normal affect
Skin: Intact
Problems Addressed including Acute and Chronic Conditions affecting care:
1. CHF exacerbation
Acuity: acute
Prognosis: unstable
Details: Given the failure of outpatient Lasix increased with the increased oxygen requirement, will start IV Lasix and admit
2. Anemia
Acuity: Chronic
Prognosis: stable
Details: Appears to be at baseline
Updates
Differential Diagnosis (but not limited to): Pneumonia, CHF exacerbation
Testing considered: D-dimer
Drug therapy (if applicable): OTC meds, please see d/c instruction regarding Rx drugs
Amount and/or Complexity of Data Reviewed
Clinical info obtained from: Patient
External data reviewed: N/A
Labs I independently reviewed (but not limited to): Creatinine within normal limits. Anemia baseline
Radiology: N/A
Pulse Ox: not hypoxic
EKG independently reviewed: Normal sinus rhythm, left axis, no STEMI
Power Electronics Engineer: Sinus rhythm
Critical Care: The high probability of a clinically significant, sudden or life threatening deterioration of the cardiovascular/pulmonary system(s) required my full and direct attention, intervention and personal management. The aggregate critical
care time was 33 minutes. This time is in addition to time spent performing reported procedures but includes the following:
[x] Data Review and interpretation
[x] Patient assessment and monitoring of vital signs
[x] Documentation
[x] Medication orders and management
Risk of Complication:
Social Determinants of health: Good social support
Discussed with other providers: Hospitalist
Escalation of Care includes Admit/Obs: Given outpatient failure of increased Lasix, will admit for IV Lasix
Occasional wrong word or 'sound a like' substitutions may have occurred due to the inherent limitations of voice recognition software. Read the chart carefully and recognize, using context, where substitutions have occurred.
*Critical Care Note
Total Time (30-74mins, 75-104mins- exclusive of procedures): 33 min
ED Attending Note
-
Portions of this chart may have been created with voice recognition software.� Occasional wrong word or��sound alike� substitutions may have occurred due to the inherent limitations of voice recognition software.
Discharge Plan
Departure
Patient Disposition: Admit
Date of Disposition: 12/16/23
Time of Disposition: 16:08
Admit to: Med/Surg
Presentation/result/management discussed w/ accepting MD/DO: Hospitalist
Discharge Problem:
Acute exacerbation of CHF (congestive heart failure)
Prescriptions:
No Action
nitroglycerin 0.4 MG tablet, sublingual
0.4 mg sublingual [id number] PRN (Reason: chest pain)
Centrum Silver 1 EACH tablet
1 ea PO DAILY
atorvastatin [Lipitor] 20 mg Tablet
20 mg PO QPM
aspirin 81 mg Tablet,Delayed Release (Dr/Ec)
81 mg PO DAILY
Hold Instructions: hold for 5 days
pantoprazole 40 mg Tablet,Delayed Release (Dr/Ec)
40 mg PO BID Qty: 45 0RF
metoprolol succinate 25 mg tablet extended release 24 hr
75 mg PO BID 30 Days Qty: 180 0RF
prednisone 10 mg tablet
10 mg PO DAILY
guaifenesin [Mucinex] 600 mg Tablet Extended Release 12hr
600 mg PO [id number] PRN (Reason: congestion)
furosemide 40 mg tablet
40 mg PO BID@0800,1200
acetaminophen 325 mg Tablet
650 mg PO Q4HPRN PRN (Reason: mild pain/AG/temp> 100.4F) Qty: 0 0RF
morphine concentrate 100 mg/5 mL (20 mg/mL) solution
10 mg PO Q6H
Patient Comments:
07/02/2023: last filled 06/27/23, 30ml for 3 days from [facility]
amlodipine 2.5 mg tablet
2.5 mg PO DAILY
levalbuterol HCl 0.63 mg/3 mL Solution For Nebulization
0.63 mg INHALATION R TID
isosorbide mononitrate 120 MG tablet extended release 24 hr
120 mg PO DAILYPRN PRN (Reason: bp geater then 120)
Rx Instructions:
hold if systolic blood pressure <110
potassium chloride 20 mEq Tablet,Er Particles/Crystals
40 meq PO DAILY Qty: 60 0RF
amoxicillin-pot clavulanate 500-125 mg tablet
1 tab PO BID Qty: 6 0RF
amoxicillin-pot clavulanate [Augmentin] 500-125 mg tablet
1 tab PO BID Qty: 10 0RF
ciprofloxacin HCl 500 mg tablet
500 mg PO BID 7 Days Qty: 14 0RF
Discharge Date and Time
Print Language: KENYAN
[2023-12-16 16:32] VITALS: BMI 25.6
[2023-12-16] MEDS: LASIX 80 MG IV (16:35)
--- NOTE | 2023-12-16 16:35 | HPS.HSE ---
Family Physician
-
Family Physician: SAM Okeefe
Chief Complaint
-
shortness of breath
History of Present Illness
88-year-old male past medical history of coronary artery disease, HFpEF, interstitial lung disease on 7-8 L oxygen baseline, anemia, prostate cancer, hypertension, hyperlipidemia, GERD, presenting with progressive shortness of breath over the past
several months. He has some slight cough. He had gained 5 pounds in the past week. 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 No fevers or chills. He has increased lower extremity edema.
He has intermittently been having chest pressure with exertion but denies any chest pain currently. He had 1 such episode a few days ago where he became cold and clammy.
He denies smoking although he was exposed to significant amount of secondhand smoke from his spouse. He denies alcohol.
Medical History
Past Medical History
Past Medical History: Reports Other (coronary artery disease, HFpEF, interstitial lung disease on 7-8 L oxygen baseline, anemia, prostate cancer, hypertension, hyperlipidemia, GERD)
Past Surgical History: Reports Other (Appendectomy, Cardiac (PTCA with stent), Orthopedic, Urological (Prostatectomy) and Other (Prostatectomy))
Social History
Tobacco: Non-smoker
Alcohol: None
Drug: None
Family History
Family History: Not pertinent
Allergies / Home Medications
Allergies reflects when Allergies were last updated in [facility].
Home Medications with original date entered in [facility]
Allergy/Medication List:
Allergies
Allergy/AdvReac Type Severity Reaction Status Date / Time
bee venom protein (honey bee) Allergy Swelling Verified 12/16/23 14:25
Influenza Virus Vaccines Allergy 'gave me Verified 12/16/23 14:25
the flu
and made
me sick
don't take
anymore'
ranolazine [From Ranexa] Allergy hallucinati Verified 12/16/23 14:25
ons
Bezecao-CWE-PyC Reductase Allergy joint pain Verified 12/16/23 14:25
Inhibitor
[Mspdyrl-Ksw-Non Reductase
Inhibitor]
Home Medications
myojaxuy-znt-bczpe acid 0.4 mg-lycopene 300 mcg-lutein 250 mcg tablet (Centrum Silver) 1 ea PO DAILY Supplement 11/09/16
nitroglycerin 0.4 mg sublingual tablet 0.4 mg sublingual [id number] PRN chest pain 11/09/16
atorvastatin 20 mg tablet (Lipitor) 20 mg PO QPM High cholesterol 01/15/22
aspirin 81 mg tablet,delayed release 81 mg PO DAILY Blood clot prevention/tx 02/14/22
pantoprazole 40 mg tablet,delayed release 40 mg PO BID Gastrointestinal issue #45 tabs 02/21/22
metoprolol succinate 25 mg tablet,extended release 24 hr 75 mg (3 x 25 mg) PO BID 30 days #180 tabs 03/02/22
furosemide 40 mg tablet 80 mg PO BID@0800,1200 Fluid retention/Swelling 04/15/22
prednisone 10 mg tablet 10 mg PO DAILY Lung/Breathing Issues 04/15/22
acetaminophen 325 mg tablet 650 mg (2 x 325 mg) PO Q4HPRN PRN mild pain/AG/temp> 100.4F #0 tabs 04/19/22
amlodipine 2.5 mg tablet 2.5 mg PO DAILY blood pressure 07/02/23
morphine concentrate 100 mg/5 mL (20 mg/mL) oral solution 10 mg PO Q6 shortness of breath 07/02/23
isosorbide mononitrate 120 mg tablet,extended release 24 hr 120 mg PO DAILYPRN PRN bp greater then 120 09/17/23
levalbuterol HCl 0.63 mg/3 mL solution for nebulization 0.63 mg inhalation R BID Lung/Breathing Issues 09/17/23
ascorbic acid (vitamin C) 500 mg tablet 500 mg PO Q48H 12/16/23
ferrous sulfate 325 mg (65 mg iron) tablet 325 mg PO Q48H 12/16/23
potassium chloride 20 mEq tablet,extended release(part/cryst) 40 meq PO DAILY Electrolyte Repletion 12/16/23
Review of Systems
-
History Source: Patient
A 12 point ROS was completed and negative except as noted: Yes
Constitutional: Reports No Symptoms
EENT: Reports No Symptoms
Respiratory: Reports See HPI
Cardiac: Reports See HPI
Abdomen/GI: Reports No Symptoms
: Reports No Symptoms
Musculoskeletal: Reports No Symptoms
Skin: Reports No Symptoms
Neurological: Reports No Symptoms
Endocrine: Reports No Symptoms
Hematologic/Lymphatic: Reports No Symptoms
Psych: Reports No Symptoms
Physical Exam
Vital Signs
Vital Signs
Temp Pulse Resp BP Pulse Ox
98.1 F 74 22 150/74 94
12/16/23 14:24 12/16/23 14:24 12/16/23 14:24 12/16/23 14:24 12/16/23 16:32
Physical Exam
General: Well Developed, Well Nourished and No Apparent Distress
HEENT: NormoCephalic, Moist mucous membranes and Atraumatic
Respiratory: Clear
Cardiac: S1/S2, Regular Rhythm and Peripheral Edema; No Murmur or Rub
GI: Soft, Non Tender, Non Distended and Normal Bowel Sounds; No Organomegaly
Rectal: Deferred by Provider
Musculoskeletal: No Clubbing, No Cyanosis and No Edema
Skin: No Rash
Neuro: Nonfocal/grossly intact
Laboratory Results
-
12/16/23 14:33
12/16/23 14:33
Laboratory Results
Total Bilirubin 0.7 mg/dl (0.2-1.3) 12/16/23 14:33
AST 40 U/L (17-59) 12/16/23 14:33
ALT 24 U/L (0-50) 12/16/23 14:33
Alkaline Phosphatase 85 U/L (38-126) 12/16/23 14:33
Troponin I < 0.012 ng/ml 12/16/23 14:33
Data Reviewed
-
Lab Data: Labs Reviewed by me
Old Records: Reviewed
Impression/Plan
-
IMPRESSION:
PLAN:
# Acute on chronic HFpEF exacerbation
-Currently on 5 L oxygen
-Cardiac BNP of 3000
-Check I's and O's, daily weights
-Chest x-ray pending
-80 IV Lasix
-Continue 40 IV twice daily
-Cardiology consulted
Coronary artery disease with history of stents
-Continue aspirin
-Continue isosorbide mononitrate
-Continue metoprolol
Interstitial lung disease on 7-8 L oxygen baseline
-Continue prednisone
Chronic anemia
-Hemoglobin 7.8 which is baseline
-Continue ferrous sulfate
Prostate cancer status post prostatectomy
Essential hypertension
-Continue morphine
Hyperlipidemia
-Continue statin
GERD
-Continue Protonix
DNR/DNI
DVT prophylaxis�heparin
Cardiac diet
[2023-12-16 17:00] VITALS: BP 158/67
--- NOTE | 2023-12-16 17:59 | EDRN ---
Patient taken to room 337-2 on monitor on O2 5LNC by plastic eye technician.
--- NOTE | 2023-12-16 18:05 | PTCARENOTE ---
pt admitted from ED awake and alert denies pain. Lungs diminished b/l on 5L via N/C. abd soft NT pt has biliary drain to right abd. skin otherwise intact Pitting +1 b/l LE edema, weak pp. CB in reach.
[2023-12-16 18:07] VITALS: BMI 26.3
[2023-12-16 18:08] VITALS: BP 176/86
[2023-12-16 18:22] VITALS: BMI 24.7
[2023-12-16] MEDS: XOPENEX 0.63 MG INHALANT SOLUTION 0.630000000000000004 MG INH (19:19)
[2023-12-16 19:31] VITALS: BP 138/60
[2023-12-16] MEDS: LIPITOR 20 MG PO (20:41)
[2023-12-16] MEDS: PROTONIX 40 MG PO (20:41)
[2023-12-16] MEDS: TOPROL XL 75 MG PO (20:41)
[2023-12-16] MEDS: HEPARIN 5000 UNITS SC (20:42)
[2023-12-16 21:03] LABS: Troponin I < 0.012 ng/ml
[2023-12-16 23:02] VITALS: BP 142/60
[2023-12-17 00:51] LABS: Troponin I < 0.012 ng/ml
[2023-12-17 03:04] VITALS: BP 128/64
[2023-12-17 05:40] VITALS: BMI 24.7
[2023-12-17 05:40] LABS: Hematocrit 26.5 % (39.0-52.0); Hemoglobin 7.9 g/dL (13.0-18.0); Mean Corp Hgb Conc. 29.8 g/dL (33.0-37.0); Mean Corpuscular Hgb 25.2 pg (27.0-31.0); Mean Corpuscular Volume 84.7 fL (80.0-94.0); Mean Platelet Volume 10.6 fL (7.4-10.4); Platelet Count 145 10^3/uL (130-400); Red Blood Cell Count 3.13 10^6/uL (4.70-6.10); Red Cell Dist. Width 19.9 % (11.5-14.5); White Blood Cell Count 5.5 10^3/uL (4.8-10.8)
--- NOTE | 2023-12-17 06:13 | W.PN.HOSP.TC ---
Today's Communication/Plan
-
cont diuresis as per cardio
wean O2 supplementation as tolerated
blood pressure control
Monitor H&H
Assessment / Plan
Assessment / Plan
Physical Exam
General: Well Developed, Well Nourished and No Apparent Distress
HEENT: NormoCephalic, Moist mucous membranes and Atraumatic
Respiratory: Bibasilar crackles nonlabored respiration on 5L
Cardiac: S1/S2, Regular Rhythm and Peripheral Edema; No Murmur or Rub
GI: Soft, Non Tender, Non Distended and Normal Bowel Sounds; No Organomegaly
Musculoskeletal: No Clubbing, No Cyanosis, +2 pitting edema lower ext b/l
Skin: No Rash
Neuro: AOx3 conversant Coherent
Psych: Calm
88M CAD, HFpEF, interstitial lung disease on 5L oxygen baseline, anemia, prostate cancer, hypertension, hyperlipidemia, GERD, presented with progressive shortness of breath increased oxygen requirement 6-8L past few weeks. Reportedly gained 5
pounds in the past week. 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 He also noted increased lower extremity edema. Since admission and start IV lasix diuresis patient lost approx 9 lbs w/in 24 hours.
# Acute on chronic HFpEF exacerbation
-Currently on 5 L oxygen
-Cardiac BNP of 3000
-monitor I's and O's, daily weights
-Chest x-ray appreciated mild mod interstitial edema w/ underlying chronic interstitial changes
-Cardiology eval appreciated cont IV lasix 80 mg bid
Coronary artery disease with history of stents
-Continue aspirin
-Continue isosorbide mononitrate
-Continue metoprolol
Interstitial lung disease on 5L oxygen baseline
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
-Continue prednisone
-at baseline 5L
Chronic anemia
-Continue ferrous sulfate
-monitor H&H
Prostate cancer status post prostatectomy
Essential hypertension
-Continue Metoprolol LAsix
Hyperlipidemia
-Continue statin
GERD
-Continue Protonix
DNR/DNI
DVT prophylaxis�heparin
Cardiac diet
Discussed with patient, patient's daughter Amanda, and Cardiology
I spent a total of 50 minutes with the patient or on the floor. More than 50% of this time involved counseling and coordination of care.
Anticipated Discharge: 24 - 48 hours
Subjective/Interval History
-
Date of Service: December 17, 2023
Seen and examined at bedside in no acute distress resting comfortably in bed on 5L nasal cannula supplementation non-labored.
Objective Data
-
Labs:
Laboratory Results
12/17/23
05:27
WBC 5.5
Hgb 7.9 L
Hct 26.5 L
Plt Count 145
Sodium Pending
Potassium Pending
Chloride Pending
Carbon Dioxide Pending
BUN Pending
Creatinine Pending
Glucose Pending
Calcium Pending
Total Bilirubin Pending
AST Pending
ALT Pending
Alkaline Phosphatase Pending
Vital Signs:
Vital Signs
Temp Pulse Resp BP Pulse Ox
98.6 F 69 18 128/64 100
12/17/23 03:04 12/17/23 03:04 12/17/23 03:04 12/17/23 03:04 12/17/23 03:04
I&O
12/15/23 12/16/23 12/17/23
06:59 06:59 06:59
Intake Total 240 / 240
Output Total 2049
Balance -0 / -0
[2023-12-17 06:26] LABS: Troponin I < 0.012 ng/ml
[2023-12-17 06:30] LABS: ALT (SGPT) 21 U/L (0-50); AST (SGOT) 33 U/L (17-59); Albumin 3.8 g/dl (3.5-5.0); Alkaline Phosphatase 72 U/L (38-126); Blood Urea Nitrogen 33 mg/dl (9-20); Calcium 8.8 mg/dl (8.4-10.2); Carbon Dioxide 33 mmol/L (22-30); Chloride 98 mmol/L (98-107); Estimated Creatinine Clearance 35 ml/min; Glucose 91 mg/dl (70-99); Potassium 4.3 mmol/L (3.5-5.1); Sodium 139 mmol/L (135-145); Total Bilirubin 0.8 mg/dl (0.2-1.3); Total Protein 6.1 g/dl (6.3-8.2)
[2023-12-17 07:11] VITALS: BP 147/60
[2023-12-17] MEDS: XOPENEX 0.63 MG INHALANT SOLUTION 0.630000000000000004 MG INH ×2 (07:21→19:38)
[2023-12-17] MEDS: TOPROL XL 75 MG PO ×2 (08:22→20:42)
[2023-12-17] MEDS: THERAGRAN 1 TABLET PO (08:22)
[2023-12-17] MEDS: KCL 40 MEQ PO (08:22)
[2023-12-17] MEDS: ASPIR LOW (ENTERIC COATED) 81 MG PO (08:22)
[2023-12-17] MEDS: DELTASONE 10 MG PO (08:22)
[2023-12-17] MEDS: PROTONIX 40 MG PO ×2 (08:22→20:42)
[2023-12-17] MEDS: LASIX 40 MG IV ×2 (08:23→08:59)
[2023-12-17] MEDS: HEPARIN 5000 UNITS SC ×2 (08:23→20:42)
[2023-12-17] MEDS: NORVASC 2.5 MG PO (08:23)
--- NOTE | 2023-12-17 08:29 | CON.CAR ---
Addendum entered and electronically signed by Walter Nelson MD 12/17/23 13:11:
I saw and examined the patient.
The TAPPING MACHINE OPERATOR AUTOMATIC's note was reviewed and I agree with the note.
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
after failing outpatient increase of his diuretic regimen. He is already feeling better with IV Lasix. On exam he has a regular rate and rhythm normal S1-S2. No murmur rubs or gallops appreciated. Lungs had bilateral rales, abdomen is soft,
extremities have 2+ pitting edema bilaterally but Tubigrip's are on currently. EKG was normal sinus rhythm with a left anterior fascicular block no significant change from prior. I discussed his HFpEF and the need to increase his diuresis we will
continue with IV twice daily Lasix with intensive monitoring. When we transition to p.o. given his right-sided symptoms would recommend transitioning to torsemide from Lasix. He is agreeable. Overall though, given his goals of care, we are going
to try to limit medications, so will not add any further medications at this time. In fact he would like to be on less medicines but for now we will continue as we are. Will continue to follow.
Original Note:
Consultation
Consultation Request
Date/Time Consultation Requested: 12/16/2023 22:00
Date/Time Consultation Performed: 12/17/2023 08:30
Requesting Provider: Dr. Jackson
Performing Provider: SAM Abdi for Dr. Nelson
Reason for Consultation: Acute on chronic heart failure
Medical History
-
Chief Complaint: Shortness of breath
History of Present Illness:
Arsen Tariq is an 88-year-old male (formerly known to Dr. Dietrich) with MVCAD status post PCI in 2010 and 2011, HFpEF, hypertension, dyslipidemia, pulmonary fibrosis on 5 L nasal cannula, chronic anemia, chronic cholecystitis status post
biliary drain placed June who is here with shortness of breath. He has associated lower extremity edema along with weight gain. He appears to be in acute on chronic heart failure. The patient's daughter called 12/11/2023 and reported weight
gain with lower extremity edema. He had some dyspnea on exertion. The diuretic protocol of doubling his Lasix for 3 days was initiated. His daughter called back last evening to report his lower extremity edema was worsening as was his shortness of
breath. He was referred to the emergency department. He is not currently having any chest pain. He denies PND and orthopnea. He does not recall gaining a significant amount of weight. He thinks it is less than 3 pounds on his home scale. He
does report having MOSQUERA when exertional activities are heavier but this has been chronic and ongoing for at least 6 months. He is currently on palliative care.
Past Medical History
Past Medical History: CAD, Cancer (Prostate), CHF, GERD, HTN, Hypercholesterolemia and Other (Chronic hypoxic respiratory failure in the setting of ILD)
Past Surgical History: Appendectomy, Orthopedic (Left TKA) and Urological (Prostatectomy)
Social History
Tobacco: Non-Smoker
Alcohol: None
Living: With Family
Employment: Retired
Family History
Family History: Reviewed & Not Pertinent
Allergies / Home Medications
Allergy/AdvReac Type Severity Reaction Status Date / Time
bee venom protein (honey bee) Allergy Swelling Verified 12/16/23 14:25
Influenza Virus Vaccines Allergy 'gave me Verified 12/16/23 14:25
the flu
and made
me sick
don't take
anymore'
ranolazine [From Ranexa] Allergy hallucinati Verified 12/16/23 14:25
ons
Afffljb-ACQ-XiL Reductase Allergy joint pain Verified 12/16/23 14:25
Inhibitor
[Zkowyma-Uxr-Msg Reductase
Inhibitor]
�Medication �Instructions �Recorded �Confirmed �Type
yfwepaiq-vvx-mzdtd acid 0.4 1 ea PO DAILY Supplement 11/09/16 12/16/23 History
mg-lycopene 300 mcg-lutein 250 mcg
tablet (Centrum Silver)
nitroglycerin 0.4 mg sublingual 0.4 mg sublingual [id number] PRN 11/09/16 12/16/23 History
tablet chest pain
atorvastatin 20 mg tablet (Lipitor) 20 mg PO QPM High cholesterol 01/15/22 12/16/23 History
aspirin 81 mg tablet,delayed 81 mg PO DAILY Blood clot 02/14/22 12/16/23 History
release prevention/tx
pantoprazole 40 mg tablet,delayed 40 mg PO BID Gastrointestinal 02/21/22 12/16/23 Rx
release issue #45 tabs
metoprolol succinate 25 mg 75 mg (3 x 25 mg) PO BID 30 days 03/02/22 12/16/23 Rx
tablet,extended release 24 hr #180 tabs
furosemide 40 mg tablet 80 mg PO BID@0800,1200 Fluid 04/15/22 12/16/23 History
retention/Swelling
prednisone 10 mg tablet 10 mg PO DAILY Lung/Breathing 04/15/22 12/16/23 History
Issues
acetaminophen 325 mg tablet 650 mg (2 x 325 mg) PO Q4HPRN PRN 04/19/22 12/16/23 Rx
mild pain/AG/temp> 100.4F #0 tabs
amlodipine 2.5 mg tablet 2.5 mg PO DAILY blood pressure 07/02/23 12/16/23 History
morphine concentrate 100 mg/5 mL 10 mg PO Q6 shortness of breath 07/02/23 12/16/23 History
(20 mg/mL) oral solution
isosorbide mononitrate 120 mg 120 mg PO DAILYPRN PRN bp greater 09/17/23 12/16/23 History
tablet,extended release 24 hr then 120
levalbuterol HCl 0.63 mg/3 mL 0.63 mg inhalation R BID 09/17/23 12/16/23 History
solution for nebulization Lung/Breathing Issues
ascorbic acid (vitamin C) 500 mg 500 mg PO Q48H 12/16/23 12/16/23 History
tablet
ferrous sulfate 325 mg (65 mg 325 mg PO Q48H 12/16/23 12/16/23 History
iron) tablet
potassium chloride 20 mEq 40 meq PO DAILY Electrolyte 12/16/23 12/16/23 History
tablet,extended release(part/cryst) Repletion
Review of Systems
-
History Source: Patient
All other systems: Negative unless noted
Constitutional: Weight Gain and Fatigue
EENT: No Symptoms
Respiratory: Trouble Breathing
Cardiac: No Symptoms
Abdomen/GI: No Symptoms
: No Symptoms
Musculoskeletal: Edema
Skin: No Symptoms
Neurological: No Symptoms
Endocrine: No Symptoms
Hematologic/Lymphatic: No Symptoms
Physical Exam
Vital Signs
Temp Pulse Resp BP Pulse Ox
98.7 F 61 18 147/60 100
12/17/23 07:11 12/17/23 07:24 12/17/23 07:24 12/17/23 07:11 12/17/23 07:24
Lab Results
12/17/23 05:27
12/17/23 05:27
Troponin I < 0.012 ng/ml 12/17/23 05:27
Xco-H-Ecnxrqceulg Pept 3020 pg/ml 12/16/23 14:33
Physical Exam
General: Well Developed, Well Nourished, No Apparent Distress and Comfortable
HEENT: Normocephalic, Anicteric and Moist Mucous Membranes
Respiratory: Crackles and Non Labored Respirations
Cardiac: S1/S2, Regular Rhythm and Peripheral Edema
Breast: Deferred by me
GI: Soft, Non Tender, Non Distended and Normal Bowel Sounds
Rectal: Deferred by Provider
Genito-urinary: No Costovertebral Tender
Musculoskeletal: No Cyanosis
Skin: Warm and Dry
Neuro: AO x 3
Hematologic/Lymphatic: No Lymphadenopathy
Psych: Calm
Impression / Plan
-
HFpEF, acute on chronic
-Volume overloaded on exam
-Diuresis with furosemide 80 mg IV twice daily
-Lower extremity compression
-Trend daily weight, I/O, and BMP with diuresis
-Heart failure education
CAD
-Stable without chest pain
-Continue medical therapy with isosorbide, beta-romario, aspirin, statin, and amlodipine
CKD3a, follow with diuresis
Hypertension, follow BP with diuresis
Aortic stenosis, mild, peak/mean gradients 19/11 mmHg, LVOT 2.0 cm, ERIK 1.6 cm2
Mild to moderate mitral vegetation
Mild mitral stenosis, mean gradient 3 mmHg
Cholecystitis status post percutaneous cholecystostomy tube
Chronic hypoxic respiratory failure, in the setting of ILD, requiring baseline of 5�7 LPM O2
Anemia of chronic disease, per primary
Prostate cancer status post prostatectomy
Data Reviewed
-
EKG: Report Reviewed by me (Sinus rhythm, LAFB, LVH, rate 71)
Radiology: Report Reviewed by me (CXR: Probable mild to moderate interstitial edema with underlying mild chronic interstitial changes.)
Medical Tests (Nuc Med, Echo etc): Report Reviewed by me
Labs: Labs Reviewed by me
Old Records: Reviewed
[2023-12-17 11:11] VITALS: BP 142/63
--- NOTE | 2023-12-17 11:54 | WOUNDNOTE ---
R ABDOMINAL BILIARY DRAIN
--- NOTE | 2023-12-17 11:54 | WOUNDNOTE ---
SACRUM AND L BUTTOCK
--- NOTE | 2023-12-17 11:57 | WOUNDNOTE ---
WON RN note: Patient admitted with CHF
See H&P for complete history. Was on hospice at home.
PMH: Stage 2 PI on buttocks, CHF,pulmonary fibrosis- oxygen at home,CAD-stents,HTN,Aortic stenosis, biliary drain.
Wound Location and type/assessment: Patient admitted with: biliary drainage and skin breakdown. R abdominal biliary drain with green tinged/bile drainage of large amt on drainage sponges. Tube is secure with sutures and clamp. skin surrounding
insertion site is red, distal to drain red horizontal lines. Patient reports that drainage varies, some days minimal others large drainage. [facility] changes dressing 2 x per week he states. Patient able to turn self onto sides. Buttocks with
scarring, L buttock near rectum with tiny stage 2 PI. L posterior thigh with red fredy, suspect fading bruise. Heels are blanchable red, pillow under calves.
Appetite: Good.
Pressure redistribution devices in place: On Accumax, turns self. Encouraged turning.
Plan: Applied skin prep and Exuderm thin to red skin surrounding tube and distally, then drainage sponges and paper tape. Foam in use on sacrum. Applied adhesive foams to heels to protect.
Will confirm orders with hospitalist and update nurse. Updated care plan and will follow as needed.
Note to case management of equipment requested for discharge: resume VN
[2023-12-17 15:00] VITALS: BP 123/52
--- NOTE | 2023-12-17 15:36 | CM ---
Alert awake oriented patient who lives at [facility] on [facility]. He is assisted in all activities of daily living.He has a hospital bed ,oxygen ,walker. He said he would like to resume [facility].
No VN hx /No SNF hx
Hr uses a walker
Pharmacy [facility]
PCP DR Niyah Christianson
PLAN Home no anticipated needs
--- NOTE | 2023-12-17 15:45 | CM ---
Addendum entered by Olga South RN 12/17/23 16:20:
spoke with Cassie at [place] about pt wanting to resume at [facility]. Referral placed in care port.
Spoek with dgt Meenakshi she requested hospice at [place].
Original Note:
Alert awake oriented patient who lives at [facility] on [facility]. He is assisted in all activities of daily living.He has a hospital bed ,oxygen,walker. He said he would like to resume [facility].
No VN hx /No SNF hx
Pharmacy [facility]
PCP DR Garcia
PLAN Return to [place] on [facility]
[2023-12-17] MEDS: LASIX 80 MG IV (16:20)
[2023-12-17] MEDS: LIPITOR 20 MG PO (17:10)
[2023-12-17 19:41] VITALS: BP 136/60
[2023-12-17 23:22] VITALS: BP 114/63
[2023-12-18] MEDS: TYLENOL 650 MG PO (02:51)
[2023-12-18 03:30] VITALS: BP 132/51
[2023-12-18] MEDS: ROXANOL ORAL CONCENTRATE 10 MG PO ×3 (05:40→21:22)
[2023-12-18 05:45] LABS: Hematocrit 27.1 % (39.0-52.0); Hemoglobin 8.3 g/dL (13.0-18.0); Mean Corp Hgb Conc. 30.6 g/dL (33.0-37.0); Mean Corpuscular Hgb 25.6 pg (27.0-31.0); Mean Corpuscular Volume 83.6 fL (80.0-94.0); Mean Platelet Volume 11.5 fL (7.4-10.4); Platelet Count 173 10^3/uL (130-400); Red Blood Cell Count 3.24 10^6/uL (4.70-6.10); Red Cell Dist. Width 19.6 % (11.5-14.5)
[2023-12-18 06:00] VITALS: BMI 24.3
[2023-12-18 06:15] LABS: Blood Urea Nitrogen 38 mg/dl (9-20); Calcium 8.5 mg/dl (8.4-10.2); Carbon Dioxide 36 mmol/L (22-30); Chloride 96 mmol/L (98-107); Estimated Creatinine Clearance 35 ml/min; Glucose 93 mg/dl (70-99); Magnesium 1.9 mg/dl (1.6-2.3); Phosphorus 4.5 mg/dl (2.5-4.5); Potassium 3.6 mmol/L (3.5-5.1); Sodium 138 mmol/L (135-145)
[2023-12-18 07:00] VITALS: BP 141/63
--- NOTE | 2023-12-18 07:26 | W.PN.HOSP.TC ---
Today's Communication/Plan
-
cont diuresis as per cardio
wean O2 supplementation as tolerated
blood pressure control
Monitor H&H
regular diet per patient's request
cont home scheduled morphine
Assessment / Plan
Assessment / Plan
Physical Exam
General: Well Developed, Well Nourished and No Apparent Distress
HEENT: NormoCephalic, Moist mucous membranes and Atraumatic
Respiratory: Bibasilar crackles nonlabored respiration on 5L
Cardiac: S1/S2, Regular Rhythm and Peripheral Edema; No Murmur or Rub
GI: Soft, Non Tender, Non Distended and Normal Bowel Sounds; No Organomegaly
Musculoskeletal: No Clubbing, No Cyanosis, +2 pitting edema lower ext b/l
Skin: No Rash
Neuro: AOx3 conversant Coherent
Psych: Calm
88M CAD, HFpEF, interstitial lung disease on 5L oxygen baseline, anemia, prostate cancer, hypertension, hyperlipidemia, GERD, presented with progressive shortness of breath increased oxygen requirement 6-8L past few weeks. Reportedly gained 5
pounds in the past week. His stores naval increased his Lasix to 80 mg twice a day but no improvement was noted. He also noted increased lower extremity edema. Since admission and start IV lasix diuresis patient lost approx 9 lbs w/in 24 hours.
# Acute on chronic HFpEF exacerbation
-Currently on 5 L oxygen
-Cardiac BNP of 3000
-monitor I's and O's, daily weights
-Chest x-ray appreciated mild mod interstitial edema w/ underlying chronic interstitial changes
-Cardiology eval appreciated cont IV lasix 80 mg bid, patient to transition to oral torsemide 40 mg bid started 12/18
Coronary artery disease with history of stents
-Continue aspirin
-Continue isosorbide mononitrate
-Continue metoprolol
Interstitial lung disease on 5L oxygen baseline
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
-Continue prednisone
-at baseline 5L
-home scheduled morphine resumed
Chronic anemia
-Continue ferrous sulfate
-monitor H&H
Prostate cancer status post prostatectomy
Essential hypertension
-Continue Metoprolol LAsix
Hyperlipidemia
-Continue statin
GERD
-Continue Protonix
DNR/DNI
DVT prophylaxis�heparin
Cardiac diet
Discussed with patient, patient's daughter Amanda, and Cardiology
I spent a total of 50 minutes with the patient or on the floor. More than 50% of this time involved counseling and coordination of care.
Anticipated Discharge: 24 - 48 hours
Subjective/Interval History
-
Date of Service: December 18, 2023
Seen and examined at bedside in no acute distress sitting up comfortably in bed. Requesting regular diet. Basline oxygen supplementation 5L. Swelling lower ext's resolved
Objective Data
-
Labs:
Laboratory Results
12/18/23
05:19
WBC 7.0
Hgb 8.3 L
Hct 27.1 L
Plt Count 173
Sodium 138
Potassium 3.6
Chloride 96 L
Carbon Dioxide 36 H
BUN 38 H
Creatinine 1.3
Glucose 93
Calcium 8.5
Vital Signs:
Vital Signs
Temp Pulse Resp BP Pulse Ox
97.7 F 60 16 132/51 100
12/18/23 03:30 12/18/23 03:30 12/18/23 03:30 12/18/23 03:30 12/18/23 03:30
I&O
12/17/23 12/18/23 12/19/23
06:59 06:59 06:59
Intake Total 240 / 240 960 / 960
Output Total 2049 / 2049 3000 / 3000
Balance -1810 / -1809 -2039 / -2039
[2023-12-18] MEDS: LASIX 80 MG IV ×2 (07:41→15:54)
[2023-12-18] MEDS: NORVASC 2.5 MG PO (07:42)
[2023-12-18] MEDS: THERAGRAN 1 TABLET PO (07:42)
[2023-12-18] MEDS: PROTONIX 40 MG PO ×2 (07:42→21:23)
[2023-12-18] MEDS: TOPROL XL 75 MG PO ×2 (07:42→21:23)
[2023-12-18] MEDS: ASPIR LOW (ENTERIC COATED) 81 MG PO (07:42)
[2023-12-18] MEDS: VITAMIN C 500 MG PO (07:42)
[2023-12-18] MEDS: DELTASONE 10 MG PO (07:42)
[2023-12-18] MEDS: FEOSOL 325 MG PO (07:42)
[2023-12-18] MEDS: HEPARIN 5000 UNITS SC ×2 (07:42→21:24)
[2023-12-18] MEDS: KCL 40 MEQ PO ×2 (07:42→21:22)
[2023-12-18] MEDS: XOPENEX 0.63 MG INHALANT SOLUTION 0.630000000000000004 MG INH ×2 (07:57→19:46)
--- NOTE | 2023-12-18 08:10 | W.PN.CD ---
Today's Communication / Plan
-
increase K supplement to BID while on IV diuretic
transtion to po torsemide 40mg bid tomorrow
Impression / Plan
-
HFpEF, acute on chronic
-Volume overloaded on exam
-Diuresis with furosemide 80 mg IV twice daily
-K dropping with IV diuresis--Increased his daily k repletion to BID while on IV diuresis
-Transition to 40mg BID of torsemide 12/19/23
-cotninue to closely monitor lytes and cr
-Lower extremity compression
-Trend daily weight, I/O, and BMP with diuresis
-Heart failure education
CAD
-Stable without chest pain
-Continue medical therapy with isosorbide, beta-romario, aspirin, statin, and amlodipine
CKD3a, follow with diuresis
Hypertension, follow BP with diuresis
Aortic stenosis, mild, peak/mean gradients 19/11 mmHg, LVOT 2.0 cm, ERIK 1.6 cm2
Mild to moderate mitral vegetation
Mild mitral stenosis, mean gradient 3 mmHg
Cholecystitis status post percutaneous cholecystostomy tube
Chronic hypoxic respiratory failure, in the setting of ILD, requiring baseline of 5�7 LPM O2
Anemia of chronic disease, per primary
Prostate cancer status post prostatectomy
Subjective:
pain all over last night, swelling better, sob stable
Physical Exam
Vital Signs/Labs
Vital Signs
Temp Pulse Resp BP Pulse Ox
97.7 F 68 18 141/63 95
12/18/23 03:30 12/18/23 08:03 12/18/23 08:03 12/18/23 07:41 12/18/23 08:03
12/17/23 12/18/23 12/19/23
06:59 06:59 06:59
Actual Weight 67.358 kg 66.361 kg
12/18/23 05:19
12/18/23 05:19
Magnesium 1.9 mg/dl (1.6-2.3) 12/18/23 05:19
12/16/23
14:33
Wxf-S-Zbownxhnwvg Pept 3020
LAB Results
12/16/23 12/16/23 12/17/23
14:33 20:31 00:22
Troponin I < 0.012 < 0.012 < 0.012
12/17/23
05:27
Troponin I < 0.012
Physical Exam
Constitutional: No acute distress
Cardiovascular: Rhythm & rate is regular, Pedal edema present (1+ 1/2 up leg) and S1S2 is normal
Respiratory: Respiratory effort normal, Lungs clear to auscul., Wheeze Absent and Crackles Absent
Neuro/Psych: AO x 3
Data Reviewed
-
Date of Service: December 18, 2023
Labs: Labs Reviewed by me (k 3.6 )
--- NOTE | 2023-12-18 10:14 | W.HF.CON ---
Heart Failure
- LV Function
Left ventricular function study result: LV Ejection fraction >40% (ECHO 09/18/23)
Ejection Fraction Percentage: 55-60
- ARNI
Patient already on ARNI: No
Heart Failure ARNI Not Indicated: LV Ejection Fraction >/= 40%
- ACEI/ARB
Patient already on ACEI/ARB: No
Heart Failure ACEI/ARB Not Indicated: LV Ejection Fraction > 40%
- Beta Chloé
Patient already on Evidence Based Beta Chloé: Yes
- Mineralocorticord Receptor Antagonist
Patient already on MRA: No
Heart Failure MRA Not Indicated: LV Ejection Fraction > 40%
- SGLT-2 Inhibitor
Patient already on SGLT-2 Inhibitor: No
Heart Failure SGLT-2 Inhibitor Not Indicated: LV Ejection Fraction >40%
- NYHA CHF Classification
NYHA CHF Classification Level: Class III - Symptoms w/ min exertion, interferes w/ nml daily activity
- ACC/AHA Stage
ACC/AHA Stage: Stage C: Symptomatic Heart Failure
[2023-12-18 11:00] VITALS: BP 131/55
[2023-12-18] MEDS: LIPITOR 20 MG PO (17:22)
[2023-12-18 19:34] VITALS: BP 163/76
[2023-12-18 23:15] VITALS: BP 130/57
[2023-12-19 02:46] VITALS: BP 131/60
[2023-12-19] MEDS: ROXANOL ORAL CONCENTRATE 10 MG PO ×4 (04:08→21:37)
[2023-12-19 05:47] LABS: Hematocrit 27.5 % (39.0-52.0); Hemoglobin 8.1 g/dL (13.0-18.0); Mean Corp Hgb Conc. 29.5 g/dL (33.0-37.0); Mean Corpuscular Hgb 25.4 pg (27.0-31.0); Mean Corpuscular Volume 86.2 fL (80.0-94.0); Mean Platelet Volume 11.2 fL (7.4-10.4); Platelet Count 155 10^3/uL (130-400); Red Blood Cell Count 3.19 10^6/uL (4.70-6.10); Red Cell Dist. Width 19.2 % (11.5-14.5)
[2023-12-19 06:00] VITALS: BMI 24.2
[2023-12-19 06:20] LABS: Blood Urea Nitrogen 42 mg/dl (9-20); Calcium 8.8 mg/dl (8.4-10.2); Carbon Dioxide 33 mmol/L (22-30); Chloride 98 mmol/L (98-107); Estimated Creatinine Clearance 42 ml/min; Glucose 85 mg/dl (70-99); Phosphorus 3.7 mg/dl (2.5-4.5); Sodium 139 mmol/L (135-145); eGFR > 60.00
--- NOTE | 2023-12-19 07:19 | W.PN.HOSP.TC ---
Today's Communication/Plan
-
monitor on Torsemide
wean O2 supplementation as tolerated
monitor H&H kidney function lytes
Assessment / Plan
Assessment / Plan
Physical Exam
General: Well Developed, Well Nourished and No Apparent Distress
HEENT: NormoCephalic, Moist mucous membranes and Atraumatic
Respiratory: Bibasilar crackles nonlabored respiration on 5L
Cardiac: S1/S2, Regular Rhythm and Peripheral Edema; No Murmur or Rub
GI: Soft, Non Tender, Non Distended and Normal Bowel Sounds; No Organomegaly
Musculoskeletal: No Clubbing, No Cyanosis, lower ext pitting edema resolved
Skin: No Rash
Neuro: AOx3 conversant Coherent
Psych: Calm
88M CAD, HFpEF, interstitial lung disease on 5L oxygen baseline, anemia, prostate cancer, hypertension, hyperlipidemia, GERD, presented with progressive shortness of breath increased oxygen requirement 6-8L past few weeks. Reportedly gained 5
pounds in the past week. 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 He also noted increased lower extremity edema. Since admission and start IV lasix diuresis patient lost approx 9 lbs w/in 24 hours.
# Acute on chronic HFpEF exacerbation
-Currently on 5 L oxygen
-Cardiac BNP of 3000
-monitor I's and O's, daily weights
-Chest x-ray appreciated mild mod interstitial edema w/ underlying chronic interstitial changes
-Cardiology eval appreciated cont IV lasix 80 mg bid, transitioned to oral torsemide 40 mg bid 12/18
Coronary artery disease with history of stents
-Continue aspirin
-Continue isosorbide mononitrate
-Continue metoprolol
Interstitial lung disease on 5L oxygen baseline
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
-Continue prednisone
-oxygen requirement increased to 6L
-home scheduled morphine resumed
Chronic anemia
-Continue ferrous sulfate
-monitor H&H
Prostate cancer status post prostatectomy
Essential hypertension
-Continue Metoprolol LAsix
Hyperlipidemia
-Continue statin
GERD
-Continue Protonix
DNR/DNI
DVT prophylaxis�heparin
Cardiac diet
I spent a total of 50 minutes with the patient or on the floor. More than 50% of this time involved counseling and coordination of care.
Anticipated Discharge: 24 - 48 hours
Subjective/Interval History
-
Date of Service: December 19, 2023
Seen and examined at bedside in no acute distress resting comfortably in bed. Reports increased sob improved w/ increase oxygen from 5L to 6L. Leg swelling remain resolved.
Objective Data
-
Labs:
Laboratory Results
12/19/23
05:27
WBC 5.0
Hgb 8.1 L
Hct 27.5 L
Plt Count 155
Sodium 139
Potassium 4.0
Chloride 98
Carbon Dioxide 33 H
BUN 42 H
Creatinine 1.1
Glucose 85
Calcium 8.8
Vital Signs:
Vital Signs
Temp Pulse Resp BP Pulse Ox
97.1 F 66 18 131/60 100
12/19/23 02:46 12/19/23 02:46 12/19/23 02:46 12/19/23 02:46 12/19/23 02:46
I&O
12/18/23 12/19/23 12/20/23
06:59 06:59 06:59
Intake Total 960 / 960 300 / 300
Output Total 3000 / 3000 2525 / 2525
Balance -2039 / -2039 -2224 /
[2023-12-19 07:30] VITALS: BP 123/56
[2023-12-19] MEDS: XOPENEX 0.63 MG INHALANT SOLUTION 0.630000000000000004 MG INH ×2 (07:47→19:45)
[2023-12-19] MEDS: TOPROL XL 75 MG PO ×2 (08:18→21:35)
[2023-12-19] MEDS: DELTASONE 10 MG PO (08:18)
[2023-12-19] MEDS: PROTONIX 40 MG PO ×2 (08:18→21:36)
[2023-12-19] MEDS: HEPARIN 5000 UNITS SC ×2 (08:19→21:30)
[2023-12-19] MEDS: DEMADEX 40 MG PO ×2 (08:19→15:15)
[2023-12-19] MEDS: KCL 40 MEQ PO ×2 (08:19→21:34)
[2023-12-19] MEDS: NORVASC 2.5 MG PO (08:19)
[2023-12-19] MEDS: THERAGRAN 1 TABLET PO (08:19)
[2023-12-19] MEDS: ASPIR LOW (ENTERIC COATED) 81 MG PO (08:19)
--- NOTE | 2023-12-19 08:24 | PN.CDI ---
CDI
- -
CDI:
Physician Documentation Request
Admit Date: 12/17/23 07:20
Dear Doctor Ned,
Please review the following and provide your response in the progress notes.
Clinical Indicators:
- 12/16 Wound note indicates Stage 2 left buttock pressure injury, POA
Physician documentation of the type and location of wounds is required for compliant documentation. Based on the above clinical findings and your assessment, please provide the following in your progress note:
1. Location of the ulcer/wound, including laterality.
2. Type (etiology) of ulcer/wound:
- Diabetic ulcer
- Arterial (ischemic) ulcer
- Traumatic wound
- Venous stasis ulcer
- Pressure (decubitus) ulcer
- Non-healing surgical wound
- Other
- Unable to determine
Use of terms such as suspected, likely, concern for, or probable (associated with a specific diagnosis that is being evaluated, monitored, or treated as if it exists) are acceptable and can be coded in the inpatient setting, when documented at the
time of discharge.
Thank you,
Mecca Pacheco RN
CDI Specialist
Please use your independent medical judgment in providing your response.
*Source: National Pressure Ulcer Advisory Panel (NPUAP)
--- NOTE | 2023-12-19 10:02 | W.PN.CD ---
Today's Communication / Plan
-
-Torsemide 40mg BID 12/19/23
-continue to closely monitor lytes and cr
Impression / Plan
-
88-year-old gentleman with past medical history of multivessel coronary artery disease with prior PCI, HFpEF, pulmonary fibrosis on 5 L nasal cannula and palliative care presented with increased shortness of breath and lower extremity edema after
failing outpatient increase of his diuretic regimen. Note hansa winn his portal O2 max is 5liters but at home he is on 7l
HFpEF, acute on chronic
-Diuresis with furosemide 80 mg IV twice daily
-Transition to 40mg BID of torsemide 12/19/23
-continue to closely monitor lytes and cr
-Lower extremity compression
-Trend daily weight, I/O, and BMP with diuresis
-Heart failure education
CAD
-Stable without chest pain
-Continue medical therapy with isosorbide, beta-romario, aspirin, statin, and amlodipine
Chronic hypoxic respiratory failure, in the setting of ILD, requiring baseline of 5�7 O2 currently on 7 liters
CKD3a, follow with diuresis
Hypertension, follow BP with diuresis
Aortic stenosis, mild, peak/mean gradients 19/11 mmHg, LVOT 2.0 cm, ERIK 1.6 cm2
Mild to moderate mitral vegetation
Mild mitral stenosis, mean gradient 3 mmHg
Cholecystitis status post percutaneous cholecystostomy tube
Anemia of chronic disease, per primary
Prostate cancer status post prostatectomy
Subjective:
no distress. appears comortable on 7 liters O2. No CP
Physical Exam
Vital Signs/Labs
Vital Signs
Temp Pulse Resp BP Pulse Ox
97.8 F 60 16 123/56 100
12/19/23 07:30 12/19/23 07:51 12/19/23 07:51 12/19/23 07:30 12/19/23 07:51
12/18/23 12/19/23 12/20/23
06:59 06:59 06:59
Actual Weight 66.361 kg 65.907 kg
12/19/23 05:27
12/19/23 05:27
Magnesium 2.0 mg/dl (1.6-2.3) 12/19/23 05:27
12/16/23
14:33
Bvx-W-Txbqreqpvqy Pept 3020
LAB Results
12/16/23 12/16/23 12/17/23
14:33 20:31 00:22
Troponin I < 0.012 < 0.012 < 0.012
12/17/23
05:27
Troponin I < 0.012
Physical Exam
Constitutional: No acute distress
Cardiovascular: Rhythm & rate is regular
Respiratory: Other (fine rackles at bases . NOTE patient with pulmonayr fibrosis)
GI: Soft
Neuro/Psych: Alert
Data Reviewed
-
Date of Service: December 19, 2023
Medical Decision Making: Reviewed Test Results
Medical Tests (PFT, Pathology etc): Report Reviewed by me
Labs: Labs Reviewed by me
--- NOTE | 2023-12-19 10:40 | CM ---
Oxygen level increased to 6 liters Pox 100%.Pt has home oxygen.
On po diuretics and po steroids.
Spoke with dgt Meenakshi [phone] she confirms he will resume hospice with [facility].
Daughter will transport dc.
PLAN Return home with [facility] fax [phone]
[2023-12-19 11:50] VITALS: BP 124/59
[2023-12-19 15:50] VITALS: BP 141/56
[2023-12-19] MEDS: LIPITOR 20 MG PO (17:19)
[2023-12-19 21:11] VITALS: BP 145/71
[2023-12-19 23:15] VITALS: BP 111/63
[2023-12-20] MEDS: ROXANOL ORAL CONCENTRATE 10 MG PO ×2 (04:58→10:17)
[2023-12-20 05:52] LABS: Hematocrit 29.4 % (39.0-52.0); Hemoglobin 8.8 g/dL (13.0-18.0); Mean Corp Hgb Conc. 29.9 g/dL (33.0-37.0); Mean Corpuscular Hgb 25.4 pg (27.0-31.0); Mean Platelet Volume 10.9 fL (7.4-10.4); Platelet Count 185 10^3/uL (130-400); Red Blood Cell Count 3.46 10^6/uL (4.70-6.10); Red Cell Dist. Width 19.1 % (11.5-14.5)
[2023-12-20 06:00] VITALS: BMI 23.1
[2023-12-20 06:13] LABS: Blood Urea Nitrogen 44 mg/dl (9-20); Calcium 8.9 mg/dl (8.4-10.2); Carbon Dioxide 33 mmol/L (22-30); Chloride 96 mmol/L (98-107); Estimated Creatinine Clearance 38 ml/min; Glucose 93 mg/dl (70-99); Phosphorus 4.2 mg/dl (2.5-4.5); Potassium 3.9 mmol/L (3.5-5.1); Sodium 138 mmol/L (135-145); eGFR 58.89
[2023-12-20] MEDS: XOPENEX 0.63 MG INHALANT SOLUTION 0.630000000000000004 MG INH (07:13)
--- NOTE | 2023-12-20 07:20 | W.PN.HOSP.TC ---
Addendum entered and electronically signed by Johnnie Marino MD 12/21/23 07:43:
Stage 2 left buttock pressure injury, POA
Original Note:
Today's Communication/Plan
-
discharge
Assessment / Plan
Assessment / Plan
Physical Exam
General: Well Developed, Well Nourished and No Apparent Distress
HEENT: NormoCephalic, Moist mucous membranes and Atraumatic
Respiratory: Bibasilar crackles nonlabored respiration on 5L
Cardiac: S1/S2, Regular Rhythm and Peripheral Edema; No Murmur or Rub
GI: Soft, Non Tender, Non Distended and Normal Bowel Sounds; No Organomegaly
Musculoskeletal: No Clubbing, No Cyanosis, No edema
Skin: No Rash
Neuro: AOx3 conversant Coherent
Psych: Calm
88M CAD, HFpEF, interstitial lung disease on 5L oxygen baseline, anemia, prostate cancer, hypertension, hyperlipidemia, GERD, presented with progressive shortness of breath increased oxygen requirement 6-8L past few weeks. Reportedly gained 5
pounds in the past week. 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 He also noted increased lower extremity edema. Since admission and start IV lasix diuresis patient lost approx 9 lbs w/in 24 hours.
# Acute on chronic HFpEF exacerbation
-Currently on 6 L oxygen
-Cardiac BNP of 3000
-monitor I's and O's, daily weights
-Chest x-ray appreciated mild mod interstitial edema w/ underlying chronic interstitial changes
-Cardiology eval appreciated cont IV lasix 80 mg bid, transitioned to oral torsemide 40 mg bid 12/18, tolerating well
Coronary artery disease with history of stents
-Continue aspirin
-Continue isosorbide mononitrate
-Continue metoprolol
Interstitial lung disease on 5L oxygen baseline
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
-Continue prednisone
-oxygen requirement increased to 6L but otherwise stable, comfortable.
-cont home scheduled morphine.
Chronic anemia
-Continue ferrous sulfate
-H&H stable and trending up
Prostate cancer status post prostatectomy
Essential hypertension
-Continue Metoprolol LAsix
Hyperlipidemia
-Continue statin
GERD
-Continue Protonix
DNR/DNI
DVT prophylaxis�heparin
Cardiac diet
Medically stable for discharge back to [facility] with outpatient follow up recommendations.
discussed with patient at bedside and patient's daughter Meenakshi over phone
Total Time Preparing Discharge ___50____ minutes including examination of the patient, summary of the hospital stay, instructions for continuing care to all relevant caregivers; and preparation of discharge records, prescriptions, and referral
forms if necessary.
Anticipated Discharge: Today
Subjective/Interval History
-
Date of Service: December 20, 2023
Seen and examined at bedside in no acute distress sitting up comfortably in bed. Reports overall feeling well, legs swelling resolved. Eager to go home.
Objective Data
-
Labs:
Laboratory Results
12/20/23
05:19
WBC 6.0
Hgb 8.8 L
Hct 29.4 L
Plt Count 185
Sodium 138
Potassium 3.9
Chloride 96 L
Carbon Dioxide 33 H
BUN 44 H
Creatinine 1.2
Glucose 93
Calcium 8.9
Vital Signs:
Vital Signs
Temp Pulse Resp BP Pulse Ox
98.6 F 62 16 111/63 98
12/19/23 23:15 12/20/23 07:14 12/20/23 07:14 12/19/23 23:15 12/20/23 07:14
I&O
12/19/23 12/20/23 12/21/23
06:59 06:59 06:59
Intake Total 300 / 300 500 / 500
Output Total 2525 / 2525 2655 / 2655
Balance -2225 / -2225 -2154 / -2154
[2023-12-20 07:37] VITALS: BP 139/60
[2023-12-20] MEDS: DELTASONE 10 MG PO (08:54)
[2023-12-20] MEDS: KCL 40 MEQ PO (08:54)
[2023-12-20] MEDS: THERAGRAN 1 TABLET PO (08:55)
[2023-12-20] MEDS: TOPROL XL 75 MG PO (08:55)
[2023-12-20] MEDS: DEMADEX 40 MG PO ×2 (08:55→15:02)
[2023-12-20] MEDS: ASPIR LOW (ENTERIC COATED) 81 MG PO (08:55)
[2023-12-20] MEDS: PROTONIX 40 MG PO (08:55)
[2023-12-20] MEDS: FEOSOL 325 MG PO (08:55)
--- NOTE | 2023-12-20 08:55 | W.PN.CD ---
Today's Communication / Plan
-
-Diuresed with furosemide 80 mg IV twice daily; now transitioned to torsemide 40 mg BID, which should be home regimen.
-Outpatient follow-up with Cardiology; no further recommendations at this time.
Impression / Plan
-
88-year-old gentleman with multivessel coronary artery disease with prior PCI, HFpEF, pulmonary fibrosis on 5 L nasal cannula and palliative care presented with increased shortness of breath and lower extremity edema after failing outpatient
increase of his diuretic regimen. Note hansa winn his portal O2 max is 5liters but at home he is on 7l
HFpEF, acute on chronic
-Diuresed with furosemide 80 mg IV twice daily; now transitioned to torsemide 40 mg BID, which should be home regimen.
-Outpatient follow-up with Cardiology; no further recommendations at this time.
CAD
-Appears to be clinically stable
-Continue current medication regimen.
Chronic hypoxic respiratory failure, in the setting of ILD, requiring baseline of 5�7 O2 currently on 7 liters
-Management as per primary team.
CKD3a -stable.
Hypertension -fairly controlled.
Aortic stenosis, mild, peak/mean gradients 19/11 mmHg, LVOT 2.0 cm, ERIK 1.6 cm2
Mild to moderate mitral regurgitation
Mild mitral stenosis, mean gradient 3 mmHg
Cholecystitis status post percutaneous cholecystostomy tube
Anemia of chronic disease, per primary
Prostate cancer status post prostatectomy
Subjective:
No major events overnight.
Physical Exam
Vital Signs/Labs
Vital Signs
Temp Pulse Resp BP Pulse Ox
97.6 F 64 18 139/60 98
12/20/23 07:37 12/20/23 07:37 12/20/23 07:37 12/20/23 07:37 12/20/23 07:14
12/19/23 12/20/23 12/21/23
06:59 06:59 06:59
Actual Weight 65.907 kg 62.851 kg
12/20/23 05:19
12/20/23 05:19
Magnesium 2.0 mg/dl (1.6-2.3) 12/20/23 05:19
12/16/23
14:33
[id number] Pept 3020
Physical Exam
Constitutional: No acute distress and Comfortable
EENT: Anicteric
Cardiovascular: Rhythm & rate is regular, Pedal edema is absent, Pedal edema present (2/) and S1S2 is normal
Respiratory: Respiratory effort normal and Rhonchi Present (Mild bibasilar)
GI: Soft
Neuro/Psych: AO x 3
Other: Skin (Warm, dry, intact)
Data Reviewed
-
Date of Service: December 20, 2023
Labs: Labs Reviewed by me
[2023-12-20] MEDS: HEPARIN 5000 UNITS SC (08:57)
[2023-12-20] MEDS: VITAMIN C 500 MG PO (09:00)
[2023-12-20] MEDS: NORVASC 2.5 MG PO (09:00)
--- NOTE | 2023-12-20 13:05 | PTCARENOTE ---
patient reports breathing less labored,tolerating diet, able to sit on edge of bed by self, vss, will continue to monitor.
--- NOTE | 2023-12-20 14:01 | CM ---
entered order for discharge.
Oxygen level 6 liters Pox 100%.Pt has home oxygen.
On po diuretics and po steroids.
Spoke with dgt Meenakshi [phone] she confirms notified [facility] of his return to [place].
Daughter will transport dc.
IMM reviewed with meenakshi she agrees with dc today.
PLAN Return home with [facility] fax [phone]
--- NOTE | 2023-12-20 14:03 | W.DCSUMMARY ---
Discharge Summary
Discharge Data
Date of Admission: 12/17/23
Date of Discharge: 12/20/23
-
Pending Results: No
Discharge Plan
-
Patient Disposition: Home with Hospice
Discharge Diagnosis/Procedures: Acute on Chronic Heart Failure with Preserved Ejection Fraction
Coronary artery disease with history of stents
Interstitial lung disease on 5-7L oxygen baseline
Acute on Chronic Hypoxic Respiratory Failure
Chronic anemia
Prostate cancer status post prostatectomy
Essential hypertension
Hyperlipidemia
GERD
Chronic Kidney Disease Stage III
Cholecystitis status post percutaneous cholecystostomy tube
Condition: Fair
Diet: Regular
Activity: As tolerated
Driving Restrictions: No driving
Bathing Restrictions: None
Blood Work: Please repeat CBC and BMP with primary care provider or Cardiology in 1 week of discharge.
Activity Restrictions/Additional Instructions:
Wound Care Instructions
Biliary drain on abdomen: clean with soap and water, skin prep and Exuderm thin to red skin surrounding tube and distally, then drainage sponges and paper tape. Change Exuderm q 2-3 days and drainage sponges when soiled daily.
Follow up with Hospice on discharge. Follow up with Primary Care Provider and Cardiology in 1 week of discharge.
Lasix has been discontinued in favor of Torsemide for better control of Heart Failure.
Please follow up with primary care provider and/or other healthcare provider involved in your care for refills and/or further adjustment to your medication regimen as necessary.
Instructions: *CBC Heart Failure Instructions
Referrals:
Kristan Hubbard CRNP [Family Provider] - in one week
Aydin Blanton MD [Active] - in one week
Prescriptions:
New
torsemide 40 mg tablet
40 mg PO BID 30 Days Qty: 60 0RF
Continued
nitroglycerin 0.4 MG tablet, sublingual
0.4 mg sublingual [id number] PRN (Reason: chest pain)
Centrum Silver 1 EACH tablet
1 ea PO DAILY
atorvastatin [Lipitor] 20 mg Tablet
20 mg PO QPM
aspirin 81 mg Tablet,Delayed Release (Dr/Ec)
81 mg PO DAILY
Hold Instructions: hold for 5 days
pantoprazole 40 mg Tablet,Delayed Release (Dr/Ec)
40 mg PO BID Qty: 45 0RF
metoprolol succinate 25 mg tablet extended release 24 hr
75 mg PO BID 30 Days Qty: 180 0RF
prednisone 10 mg tablet
10 mg PO DAILY
acetaminophen 325 mg Tablet
650 mg PO Q4HPRN PRN (Reason: mild pain/AG/temp> 100.4F) Qty: 0 0RF
morphine concentrate 100 mg/5 mL (20 mg/mL) solution
10 mg PO Q6
Patient Comments:
07/02/2023: last filled 06/27/23, 30ml for 3 days from [facility]
amlodipine 2.5 mg tablet
2.5 mg PO DAILY
levalbuterol HCl 0.63 mg/3 mL Solution For Nebulization
0.63 mg INHALATION R BID
isosorbide mononitrate 120 MG tablet extended release 24 hr
120 mg PO DAILYPRN PRN (Reason: bp greater then 120)
Rx Instructions:
hold if systolic blood pressure <110
ascorbic acid (vitamin C) 500 mg Tablet
500 mg PO Q48H
ferrous sulfate 325 mg (65 mg iron) Tablet
325 mg PO Q48H
potassium chloride 20 mEq tablet,ER particles/crystals
40 meq PO DAILY Qty: 0 0RF
Rx Instructions:
hold if not taking diuretic (such as Lasix or Torsemide)
Discontinued
furosemide 40 mg tablet
80 mg PO BID@0800,1200
Discharge Orders:
Discharge Patient (As Directed); Ordered 12/20/23
Ordered By: Johnnie Marino
Discharge Date and Time
Print Language: TURKISH
[2023-12-20 15:45] VITALS: BP 96/69
== END 2023-12-20 16:50 | disposition hospice, home (50) | DRG 291 ==
LOC: 3 WEST ACU 07:20
PROVIDERS: Emergency Medicine; ADMITTING PHYSICIAN Hospitalist; ATTENDING PHYSICIAN Internal Medicine; CONSULT PHYSICIAN Internal Medicine Cardiovascular Disease; EMERGENCY PHYSICIAN Student in an Organized Health Care Education/Training Program; FAMILY PHYSICIAN Nurse Practitioner Adult Health
DX: I13.0 Hypertensive heart and chronic kidney disease with heart failure and stage 1 through stage 4 chronic kidney disease, or unspecified chronic kidney disease (principal); I50.33 Acute on chronic diastolic (congestive) heart failure; J96.21 Acute and chronic respiratory failure with hypoxia; J84.10 Pulmonary fibrosis, unspecified; N18.31 Chronic kidney disease, stage 3a; I25.10 Atherosclerotic heart disease of native coronary artery without angina pectoris; D63.1 Anemia in chronic kidney disease; E78.00 Pure hypercholesterolemia, unspecified; I44.4 Left anterior fascicular block; K21.9 Gastro-esophageal reflux disease without esophagitis; I08.0 Rheumatic disorders of both mitral and aortic valves; Z66 Do not resuscitate; Z51.5 Encounter for palliative care; Z99.81 Dependence on supplemental oxygen; Z93.4 Other artificial openings of gastrointestinal tract status; Z95.5 Presence of coronary angioplasty implant and graft; Z79.82 Long term (current) use of aspirin; Z79.52 Long term (current) use of systemic steroids; Z85.46 Personal history of malignant neoplasm of prostate
CPT/HCPCS: 71045; 80048; 80053; 83735; 83880; 84100; 84484; 85025; 85027; 86850; 86900; 86901; 93005; 94640; 99291

== ENCOUNTER → 2024-01-01 15:21 | Outpatient (REF) | payer MEDICARE, BC, SELFPAY ==
[2024-01-01 15:59] LABS: % Basophils 0.2 % (0-2); % Immature Granulocytes 1.6 % (0-0.5); % Lymphocytes 17.7 % (20.5-51.1); % Neutrophils 74.5 % (42.2-75.2); Absolute Immature Granulocytes 0.1 10^3/uL (0-0.05); Absolute Lymphocytes 0.9 10^3/uL (1.2-3.4); Absolute Monocytes 0.3 10^3/uL (0.1-0.6); Absolute Neutrophils 3.8 10^3/uL (1.4-6.5); Hematocrit 24.7 % (39.0-52.0); Hemoglobin 7.5 g/dL (13.0-18.0); Mean Corp Hgb Conc. 30.4 g/dL (33.0-37.0); Mean Corpuscular Hgb 27.1 pg (27.0-31.0); Mean Corpuscular Volume 89.2 fL (80.0-94.0); Mean Platelet Volume 11.9 fL (7.4-10.4); Nucleated Red Blood Cells % 0 % (-); Platelet Count 146 10^3/uL (130-400); Red Blood Cell Count 2.77 10^6/uL (4.70-6.10); Red Cell Dist. Width 20.5 % (11.5-14.5); White Blood Cell Count 5.2 10^3/uL (4.8-10.8)
[2024-01-01 16:19] LABS: NT-proBNP 3790 pg/ml
[2024-01-01 16:23] LABS: Blood Urea Nitrogen 49 mg/dl (9-20); Calcium 8.5 mg/dl (8.4-10.2); Carbon Dioxide 31 mmol/L (22-30); Chloride 100 mmol/L (98-107); Glucose 114 mg/dl (70-99); Potassium 4.1 mmol/L (3.5-5.1); Sodium 139 mmol/L (135-145); eGFR 48.95
== END ==
LOC: REG 15:21
PROVIDERS: ATTENDING PHYSICIAN Registered Nurse Ambulatory Care
DX: I50.22 Chronic systolic (congestive) heart failure (principal); D50.9 Iron deficiency anemia, unspecified
CPT/HCPCS: 36415; 80048; 83880; 85025

== ENCOUNTER → 2024-03-09 13:40 | Outpatient (REF) | payer MEDICARE, BC, SELFPAY ==
[2024-03-09 14:04] VITALS: BP 133/60; BP_SYST 83
[2024-03-09 15:00] VITALS: BP 135/66; BP_SYST 82
== END ==
LOC: RADI 13:40
PROVIDERS: ATTENDING PHYSICIAN Radiology Diagnostic Radiology; REFERRING PHYSICIAN Surgery
DX: Z43.4 Encounter for attention to other artificial openings of digestive tract (principal)
CPT/HCPCS: 47490; C1729

== ENCOUNTER → 2024-03-20 13:48 | Outpatient (REF) | payer MEDICARE, BC, SELFPAY ==
[2024-03-20 15:42] VITALS: BP 143/68; BP_SYST 73
== END ==
LOC: RADI 13:48
PROVIDERS: ATTENDING PHYSICIAN Radiology Diagnostic Radiology
DX: Z43.4 Encounter for attention to other artificial openings of digestive tract (principal)
CPT/HCPCS: 47536; C1729; C1769

== ENCOUNTER → 2024-03-25 10:19 | Outpatient (REF) | payer MEDICARE, BC, SELFPAY ==
[2024-03-25 10:38] VITALS: BP 163/63; BP_SYST 80
== END ==
LOC: RADI 10:19
PROVIDERS: ATTENDING PHYSICIAN Radiology Vascular & Interventional Radiology
DX: Z43.4 Encounter for attention to other artificial openings of digestive tract (principal)
CPT/HCPCS: 47536; C1729; C1769

== ENCOUNTER → 2024-04-27 11:01 | Outpatient (REF) | payer MEDICARE, BC, SELFPAY ==
[2024-04-27 11:46] VITALS: BP 167/65; BP_SYST 64
== END ==
LOC: RADI 11:01
PROVIDERS: ATTENDING PHYSICIAN Radiology Vascular & Interventional Radiology
DX: T85.520A Displacement of bile duct prosthesis, initial encounter (principal); K80.10 Calculus of gallbladder with chronic cholecystitis without obstruction; Y73.2 Prosthetic and other implants, materials and accessory gastroenterology and urology devices associated with adverse incidents
CPT/HCPCS: 47536; C1729; C1769

== ENCOUNTER → 2024-05-05 13:45 | Outpatient (REF) | payer MEDICARE, BC, SELFPAY ==
[2024-05-05 13:59] VITALS: BP 151/66; BP_SYST 76
[2024-05-05 14:47] VITALS: BP 145/63
== END ==
LOC: RADI 13:45
PROVIDERS: ATTENDING PHYSICIAN Radiology Vascular & Interventional Radiology
DX: T85.520A Displacement of bile duct prosthesis, initial encounter (principal); Y73.2 Prosthetic and other implants, materials and accessory gastroenterology and urology devices associated with adverse incidents; K80.10 Calculus of gallbladder with chronic cholecystitis without obstruction
CPT/HCPCS: 47536; C1729; C1769